=== PATIENT | female | born 1935 | race Hispanic/Latino ===

== ENCOUNTER 2018-09-24 22:00 | Inpatient (IN) | payer OTHER ==
[~2018-09-24] VITALS: Ht 152.4 cm; Wt 42.9 kg
--- OUTSIDE RECORDS SUMMARY | 2018-09-24 22:02 | XMS REPORT ---
Author Organization Unknown Address [address] [place] [address] Phone [phone] Care Team Providers Care Esthetician Name Role Phone Andrew Roque Unavailable Unavailable Allergies Code Code System Name Reaction Severity Status Onset No Known Allergies Active Medications Name Status Start Date Stop Date benazepril 20 mg-hydrochlorothiazide 25 mg tablet Take 1 tablet every day by oral route for 90 days. Active Not available benzonatate 150 mg capsule Take 1 capsule 3 times a day by oral route as needed for 5 days. Completed 07/23/2017 Cartia XT 240 mg capsule,extended release Completed 03/25/2016 clotrimazole 1 % topical cream APPLY TO THE AFFECTED AND SURROUNDING AREAS OF SKIN BY TOPICAL ROUTE 2 TIMES PER DAY IN THE MORNING AND EVENING Completed 02/10/2017 DILT-XR 240 mg capsule, extended release Take 1 capsule every day by oral route for 90 days. Active Not available glimepiride 2 mg tablet Completed 03/25/2016 glimepiride 4 mg tablet TAKE ONE TABLET BY MOUTH ONCE DAILY IN THE MORNING WITH BREAKFAST OR THE FIRST MAIN MEAL OF THE DAY Completed 07/23/2017 Levemir FlexTouch U-100 Insulin 100 unit/mL (3 mL) subcutaneous pen Inject 10 units every day by subcutaneous route for 90 days. Active Not available levothyroxine 100 mcg tablet Completed 03/25/2016 levothyroxine 125 mcg tablet Completed 03/25/2016 levothyroxine 50 mcg tablet TAKE ONE TABLET BY MOUTH ONCE DAILY Completed 07/23/2017 levothyroxine 75 mcg tablet Take 1 tablet every day by oral route for 90 days. Active Not available meloxicam 15 mg tablet Completed 02/10/2017 meloxicam 7.5 mg tablet TAKE ONE TABLET BY MOUTH ONCE DAILY Completed 06/01/2016 metformin 500 mg tablet Take 1 tablet twice a day by oral route for 90 days. Active Not available simvastatin 10 mg tablet Completed 03/25/2016 simvastatin 40 mg tablet Take 1 tablet every day by oral route for 90 days. Active Not available Tylenol Arthritis Pain 650 mg tablet,extended release Take 1 tablet every 8 hours by oral route as needed for 10 days. Completed 07/23/2017 Victoza 2-Jermaine 0.6 mg/0.1 mL (18 mg/3 mL) subcutaneous pen injector Inject 1.2 mg every day by subcutaneous route for 30 days. 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 07/23/2017 Peripheral Circulatory Disorder Associated with Type 2 Diabetes Mellitus Active 07/23/2017 Chronic Kidney Disease Stage 3 Active 07/23/2017 Procedures Date Name Performed by 02/10/2017 Bone Density, Dual Photon Absorptiometry [place] [employer] [facility] [address] [place] [address] (Work Place) 07/23/2017 US, Doppler, Arterial [facility] [address] [facility] [address] [place] [address] (Work Place) Notes: 09/20/2015: APPENDIX; Surgery Date: 2013 Lab Results Date Name Specimen Result Interpretation Description Value Range Status Address 02/10/2017 CBC W/ Auto Diff Wbc 5.89 x10*3/L 3.98-10.04 x10*3/L Final [facility] Laboratory: [address] Rbc 5.15 10*12/L 3.93-5.22 10*12/L Final [facility] Laboratory: [address] Hemoglobin 15.70 g/dL 11.20-15.70 g/dL Final [facility] Laboratory: [address] High Hematocrit 46.5 % 34.1-44.9 % Final [facility] Laboratory: [address] Mcv 90.3 fL 80.0-100.0 fL Final [facility] Laboratory: [address] Mch 30.5 pg 25.6-32.2 pg Final [facility] Laboratory: [address] Mchc 33.8 g/dL 32.2-35.5 g/dL Final [facility] Laboratory: [address] [place] RDW-SD 46.3 fL 36.4-46.3 fL Final [facility] Laboratory: [address] [place] High Platelet Count 494.0 k/uL 182.0-369.0 k/uL Final [facility] Laboratory: [address] [place] Mpv 10.2 fL 7.5-11.5 fL Final [facility] Laboratory: [address] [place] Neut% 55.5 % 34.0-71.1 % Final [facility] Laboratory: [address] [place] Lymph% 32.8 % 19.3-51.7 % Final [facility] Laboratory: [address] [place] Mon% 6.6 % 4.7-12.5 % Final [facility] Laboratory: [address] [place] Eos% 2.2 % 0.7-5.8 % Final [facility] Laboratory: [address] [place] High Baso% 2.9 % 0.1-1.2 % Final [facility] Laboratory: [address] [place] Neut# 3.3 x10*3/L 1.6-6.1 x10*3/L Final [facility] Laboratory: [address] [place] Lymph# 1.9 x10*3/L 1.2-3.7 x10*3/L Final [facility] Laboratory: [address] [place] Mon# 0.4 x10*3/L 0.2-0.9 x10*3/L Final [facility] Laboratory: [address] [place] Eos# 0.13 x10*3/L 0.04-0.36 x10*3/L Final [facility]: [address] [place] Baso# 0.17 x10*3/L 0.01-0.08 x10*3/L Final [facility]: [address] [place] 02/10/2017 CMP, Serum or Plasma Alt 16 U/L 0-55 U/L Final [facility] Laboratory: [address] [place] [address] Ast 19 U/L 5-34 U/L Final [facility] Laboratory: [address] [place], [place] Bun 13.5 mg/dL 9.8-20.1 mg/dL Final [facility] Laboratory: [address] [place], [place] Alk Phos 141 unit/L 40-150 unit/L Final [facility]: [address] [facility] Glucose 365 mg/dL 70-99 mg/dL Final [facility]: [address] [facility] Low Albumin 3.4 g/dL 3.5-5.0 g/dL Final [facility]: [address] [facility] Creatinine 0.92 mg/dL 0.57-1.11 mg/dL Final [facility] Laboratory: [address] [place] [address] Low eGFR Non- 58 mL/min/1.73m2 >60 mL/min/1.73m2 Final [facility] Laboratory: [address] [place] [address] Total Bilirubin 0.5 mg/dL 0.2-1.2 mg/dL Final [facility] Laboratory: [address] [place] [address] eGFR - >60 mL/min/1.73m2 >60 mL/min/1.73m2 Final [facility]: [address] [facility] Sodium 136 mEq/L 136-145 mEq/L Final [facility] Laboratory: [address] [place] [address] High Potassium 5.2 mEq/L 3.5-5.1 mEq/L Final [facility] Laboratory: [address] [place] [address] Chloride 100 mmol/L 98-107 mmol/L Final [facility] Laboratory: [address] Total Protein 7.7 g/dL 6.4-8.3 g/dL Final [facility]: [address] [facility] Calcium 10.1 mg/dL 8.4-10.2 mg/dL Final [facility] Laboratory: [address] Co2 26.8 mmol/L 23.0-31.0 mmol/L Final [facility] Laboratory: [address] Anion Gap 9 calc Final [facility] Laboratory: [address] 02/10/2017 Lipid Panel, Serum Hdl 47 mg/dL 40-60 mg/dL Final [facility] Laboratory: [address] High Triglyceride 242 mg/dL 0-149 mg/dL Final [facility]: [address] VLDL Calc. 48 mg/dL Final [facility] Laboratory: [address] cholesterol/HDL Ratio 5.2 mg/dL Final [facility] Laboratory: [address] High non-HDL Cholesterol Calc. 196 mg/dL 0-160 mg/dL Final [facility] Laboratory: [address] High Cholesterol 243 mg/dL 0-199 mg/dL Final [facility] Laboratory: [address] High LDL Calc. 148 mg/dL 0-130 mg/dL Final [facility] Laboratory: [address] 02/10/2017 T4, Free, Serum T4 Free 0.73 NG/dL 0.70-1.48 NG/dL Final [facility] Laboratory: [address] 02/10/2017 TSH, Serum or Plasma High Tsh 30.680 uIU/mL 0.350-4.940 uIU/mL Final [facility] Laboratory: [address] 02/10/2017 HbA1C (Hemoglobin a1C), Blood High A1C W/eag 12.8 % 1.0- 5.7 % Final [facility] Laboratory: [address] Average Blood Glucose 321 mg/dL Final [facility] Laboratory: [address] Albumin:creatinine Ratio, Urine Type Urine Microlalbumin 30 mg/L [facility]: [address] [place] [address], [place] Type Urine Creatinine 50 mg/dL [facility]: [address] [place] [address], [place] Type A:C Ratio 30-300 mg/g (Abnormal) [facility]: [address] Past Encounters 07/23/2017 Hypertensive Disorder; Hypothyroidism; Pure Hypercholesterolemia; Pneumococcal Vaccination; Renal Disorder Due to Type 2 Diabetes Mellitus; Peripheral Circulatory Disorder Associated with Type 2 Diabetes Mellitus CODEY Turner: [id number] [facility], [facility] [address] [address], Ph. 02/23/2017 Type 2 Diabetes Mellitus; Pure Hypercholesterolemia; Hypothyroidism; Hypertensive Disorder Marilyn ZabalaPARVINP: [id number] [facility], [facility] [address] [address], Ph. 02/10/2017 Adult Health Examination; Body Mass Index 20-24 - Normal; Hypertensive Disorder; Type 2 Diabetes Mellitus; Pure Hypercholesterolemia; Hypothyroidism; Pure Hyperglyceridemia; Advance Directive Discussed with Patient; Depression Screening; At Risk for Falls; Immunization; Screening for Malignant Neoplasm of Colon; Screening Mammography; Postmenopausal State; Cough; Hearing Loss; Pain of Left Shoulder Joint Marilyn FAVIAN Zabala: [id number] [facility], [address] [address], Ph. 06/01/2016 Type 2 Diabetes Mellitus; Hypertensive Disorder; Hypothyroidism; Generalized Aches and Pains; Pure Hypercholesterolemia Andrew Roque MD: [id number] [facility], [address] [address], Ph. 03/25/2016 Hypertensive Disorder; Hypothyroidism; Generalized Aches and Pains; Type 2 Diabetes Mellitus; Tinea Pedis Due to Trichophyton Rubrum; Immunization Andrew Roque MD: [id number] [facility], [address] [address], Ph. Social History Smoking Status Never Smoker Vaccine List Vaccine Type influenza, high dose seasonal 02/10/20170.5 mL influenza, injectable, quadrivalent 03/06/2015 pneumococcal polysaccharide PPV23 03/25/20160.5 mL Plan of Care Patient Instructions Discussed in detail with patient and her daughter that the patient is at high risk for complications including or disability for not following my recommendations by taking medications consistently, keeping follow up appointments or changing lifestyle. It was good to see you in the office today for your Medicare Annual Wellness Visit. You have been provided some information on healthy nutrition, including a diet rich in fruits and vegetables, minimizing simple carbohydrates, salt, and saturated fats. I want to encourage regular cardiovascular exercise such as walking at least 30 minutes daily, 5 times per week. Please remember to schedule any preventive health measures that we talked about today. You have also been provided education on fall prevention and community- based lifestyle interventions to help reduce health risks and promote healthy living in your Pledge51 folder. Screening Recommendations 1. Vaccines Pneumococcal: discussed today and information sent with patient in their [facility] health folder Influenza: discussed today and information sent with patient in their [facility] health folder Shingles: discussed today and information sent with patient in their [facility] health folder Tetanus: discussed today and information sent with patient in their [facility] health folder 2. Mammography Screening: discussed today and information sent with patient in their [facility] health folder 3. Colorectal cancer Screening Colonoscopy: discussed today and information sent with patient in their [facility] health folder Fecal Occult Blood: discussed today and information sent with patient in their [facility] health folder 4. Bone Mass Measurement: discussed today 5. Pap test / Pelvic Exam Screening: discussed today 6. Eye Exam Screening: discussed today 7. Cholesterol Screening: discussed today 8. Diabetes Screening: discussed today Reminders Provider Appointments None recorded. Lab None recorded. Referral None recorded. Procedures None recorded. Surgeries None recorded. Imaging None recorded. Vitals 07/23/2017 11:15AM Work In Same Day Height Weight BMI Blood Pressure 4 ft 10.5 in 120 lbs 24.7 kg/m2 136/76 mm[Hg] 02/23/2017 10:15AM Work In Same Day Height Weight BMI Blood Pressure 4 ft 10.5 in 117 lbs 24 kg/m2 133/77 mm[Hg] 02/10/2017 09:30AM AWV Height Weight BMI Blood Pressure 4 ft 10.5 in 118 lbs 24.2 kg/m2 (1) 163/92 mm[Hg] (2) 164/91 mm[Hg] 06/01/2016 10:45AM Est Patient Height Weight BMI Blood Pressure 4 ft 10.5 in 126.4 lbs 26 kg/m2 146/80 mm[Hg] 03/25/2016 04:30PM Est Patient Height Weight BMI Blood Pressure 4 ft 10.5 in 129.6 lbs 26.6 kg/m2 171/101 mm[Hg] 09/20/2015 Height Weight BMI Blood Pressure 4 ft 10.5 in 127 lbs 26.09 kg/m2 122/71 mm[Hg] 09/16/2015 Height Weight BMI Blood Pressure 4 ft 10.5 in 127.6 lbs 26.21 kg/m2 127/74 mm[Hg] 07/26/2015 Height Weight BMI Blood Pressure 4 ft 10.5 in 125.2 lbs 25.72 kg/m2 121/67 mm[Hg] 07/11/2015 Height Weight BMI Blood Pressure 4 ft 10.5 in 124 lbs 25.47 kg/m2 122/71 mm[Hg] 03/06/2015 Height Weight BMI Blood Pressure 4 ft 10.5 in 115.6 lbs 23.75 kg/m2 110/80 mm[Hg] 06/18/2014 Height Weight BMI Blood Pressure 4 ft 10.5 in 132 lbs 27.12 kg/m2 120/78 mm[Hg] 02/14/2014 Height Weight BMI Blood Pressure 4 ft 10.5 in 111.8 lbs 22.97 kg/m2 140/90 mm[Hg] 08/07/2013 Height Weight 4 ft 10.5 in 114.8 lbs 02/13/2013 Height Weight 4 ft 10.5 in 117 lbs 11/16/2012 Height Weight 4 ft 10.5 in 117.4 lbs 06/30/2012 Height Weight 4 ft 10.5 in 124.6 lbs 12/07/2011 Height Weight 4 ft 10.5 in 133.4 lbs 12/03/2011 Height Weight 4 ft 10.5 in 132.4 lbs 06/05/2011 Height Weight 4 ft 10.5 in 127 lbs 11/03/2010 Height Weight 4 ft 10.5 in 132.6 lbs 07/21/2010 Height Weight 4 ft 10.5 in 132 lbs 05/16/2010 Weight 136 lbs 05/02/2010 Height Weight 4 ft 10.5 in 132.8 lbs 12/25/2009 Height Weight 4 ft 10.5 in 137.8 lbs 10/01/2009 Weight 135.2 lbs 06/13/2009 Height Weight 4 ft 10.5 in 127 lbs 04/16/2009 Weight 134 lbs 02/01/2009 Weight 129 lbs 12/27/2008 Weight 126 lbs 10/31/2008 Height Weight 4 ft 10 in 131 lbs 07/31/2008 Height Weight 4 ft 9 in 136 lbs
[2018-09-24 22:26] LABS: BASOPHILS # (AUTO) 0.1 (0.0-0.1); BASOPHILS % 1.8 % (0.0-1.0); EOSINOPHILS # (AUTO) 0.1 (0.0-0.4); EOSINOPHILS % 1.1 % (0.0-6.0); HEMATOCRIT 30.1 % (34.2-44.1); HEMOGLOBIN 10.9 g/dL (12.0-16.0); LYMPHOCYTES # (AUTO) 1.2 (1.0-3.2); LYMPHOCYTES % 19.1 % (18.0-39.1); MEAN CORPUSCULAR HEMOGLOBIN 31.2 pg (28-32); MEAN CORPUSCULAR HGB CONC 36.2 g/dL (31-35); MEAN CORPUSCULAR VOLUME 86.2 fL (81-99); MONOCYTES # (AUTO) 0.7 (0.2-0.8); MONOCYTES % 10.5 % (4.4-11.3); NEUTROPHILS # (AUTO) 4.1 (2.1-6.9); NEUTROPHILS % 66.5 % (38.7-80.0); PLATELET COUNT 621 x10e3/uL (140-360); RED BLOOD COUNT 3.49 x10e6/uL (3.6-5.1); RED CELL DISTRIBUTION WIDTH 13.5 % (11.7-14.4)
[2018-09-24 22:27] LABS: BILIRUBIN,URINE NEGATIVE (NEGATIVE); CLARITY,URINE CLEAR (CLEAR); COLOR,URINE YELLOW (YELLOW); KETONES,URINE NEGATIVE (NEGATIVE); LEUKOCYTE ESTERASE ,URINE MODERATE (NEGATIVE); NITRITE,URINE NEGATIVE (NEGATIVE); PROTEIN,URINE DIPSTICK NEGATIVE (NEGATIVE); URINE UROBILINOGEN 0.2 mg/dL (0.2 - 1)
[2018-09-24] MEDS ORDERED: SIMVASTATIN40 MG PO (22:38)
[2018-09-24] MEDS ORDERED: LEVOTHYROXINE100 MCG PO (22:38)
[2018-09-24] MEDS ORDERED: METFORMIN HCL500 MG PO (22:38)
[2018-09-24] MEDS ORDERED: DILT-XR240 MG PO (22:38)
[2018-09-24] MEDS ORDERED: FENOFIBRATE54 MG PO (22:38)
[2018-09-24] MEDS ORDERED: ASPIRIN EC81 MG PO (22:38)
[2018-09-24] MEDS ORDERED: BENAZEPRIL-HCT1 EAC3 PO (22:38)
[2018-09-24 22:40] LABS: INR 1.02; PROTHROMBIN TIME 13.9 seconds (11.9-14.5)
[2018-09-24 22:41] LABS: PARTIAL THROMBOPLASTIN TIME 27.9 seconds (23.8-35.5)
[2018-09-24 22:50] LABS: ALBUMIN 3.6 g/dL (3.5-5.0); ALBUMIN/GLOBULIN RATIO 0.9 (0.8-2.0); BACTERIA,URINE MANY /HPF; CALCIUM 10.5 mg/dL (8.4-10.2); CREATININE, SERUM 2.31 mg/dL (0.57-1.11); EPITHELIAL CELLS,URINE FEW /LPF; WBC,URINE (MAN) >50 /HPF (0-5)
[2018-09-24 22:57] LABS: CREATINE KINASE MB 0.5 ng/mL (0-5.0)
--- NOTE | 2018-09-24 23:04 | Diagnostic Imaging Report ---
EXAMINATION: CHEST 2 VIEWS INDICATION: ^CHEST PAIN COMPARISON: None FINDINGS: PA and lateral views TUBES and LINES: None. LUNGS: Diffuse hyperinflation. There is no evidence of pneumonia or pulmonary edema. Round calcification superimposed over the mediastinum on the lateral image may represent a calcified granuloma. This measures 8 mm. PLEURA: No pleural effusion or pneumothorax. HEART AND MEDIASTINUM: The heart is normal in size. The aorta is tortuous with calcifications in the arch. BONES AND SOFT TISSUES: The bones are diffusely demineralized. Healed left upper rib fractures. No acute fractures. Soft tissues are unremarkable. UPPER ABDOMEN: No free air under the diaphragm. IMPRESSION: No acute thoracic abnormality. Mild hyperinflation suggestive of COPD. Potential calcified granuloma. Signed by: Dr. Daniel Cohen MD on 09/24/2018 11:01 PM
[2018-09-24] MEDS: SODIUM CHLORIDE 0.9% 1000ML 1,000 ML IV SCH (23:24)
[2018-09-24] MEDS ORDERED: CEFTRIAXONE SOD 1 GM/NS 50 ML 50 ML IV SCH (23:30)
[2018-09-24] MEDS ORDERED: SODIUM CHLORIDE 0.9% 1000ML 1,000 ML IV SCH (23:43)
[2018-09-24] MEDS ORDERED: DEXTROSE 50% SYRINGE 50 ML IV PRN (23:45)
[2018-09-24] MEDS ORDERED: ONDANSETRON HCL INJ 2MG/ML 2ML 2 MG/ML VIAL IV PRN (23:45)
[2018-09-25] VITALS (10 sets, daily range): BP systolic 116–156; BP diastolic 56–69
--- OUTSIDE RECORDS SUMMARY | 2018-09-25 00:27 | XMS REPORT ---
Author [facility] Address Unknown Phone Unavailable Care Team Providers Care Installation And Repair Technician Name Role Phone Caroline LUX Unavailable Unavailable Problems This patient has no known problems. Allergies, Adverse Reactions, Alerts This patient has no known allergies or adverse reactions. Medications This patient has no known medications. Results Test Description Test Time Test Comments Text Results Atomic Results Result Comments CHEST 2 VIEWS 2018 22:59:00 [place] [address] Patient Name: VIVIANA MALIK MR #: [id number] : 1935 Age/Sex: 83/F Req #: [id number] Adm Physician: Ordered by: ROSA LUX MD Report #: [id number] Location: ER Room/Bed: Procedure: [id number] DX/CHEST 2 VIEWS Exam Date: Exam Time: REPORT STATUS: Signed EXAMINATION: CHEST 2 VIEWS INDICATION: CHEST PAIN COM PARISON: None FINDINGS: PA and lateral views TUBES and LINES: None. LUNGS: Diffuse hyperinflation. There is no evidence of pneumonia or pulmonary edema. Round calcification superimposed over the mediastinum on the lateral image may represent a calcified granuloma. This measures 8 mm. PLEURA: No pleural effusion or pneumothorax. HEART AND MEDIASTINUM: The heart is normal in size. The aorta is tortuous with calcifications in the arch. BONES AND SOFT TISSUES: The bones are diffusely demineralized. Healed left upper rib fractures. No acute fractures. Soft tissues are unremarkable. UPPER ABDOMEN: No free air under the diaphragm. IMPRESSION: No acute thoracic abnormality. Mild hyperinflation suggestive of COPD. Potential calcified granuloma. Signed by: Dr. Lola Cohen MD on 2018 11:01 PM Dictated By: LOLA COHEN MD 00 Transcribed By: NABIL on 09/24/182300 COPY TO: ROSA LUX MD
--- NOTE | 2018-09-25 07:10 | NUR ---
PATIENT IS RESTING IN BED- ALERT TO SELF AND CONFUSED BUT REMAINS IN STABLE CONDITION WITH NO S/S OF RESPIRATORY DISTRESS. NO PAIN INDICATED- FLACC SCREEN. IV FLUIDS INFUSING. MIJARES IS INTACT- MIJARES REMAINS BELOW BLADDER AND IS NOT TOUCHING THE FLOOR. FAMILY MEMBERS PRESENT IN THE ROOM. AIR PUMP AND BED ALARM APPLIED. CALL LIGHT IS WITHIN REACH OF PATIENT- PATIENT AND FAMILY MEMBERS INFORMED TO CALL FOR ASSISTANCE NEEDED.
[2018-09-25 07:30] LABS: BASOPHILS # (AUTO) 0.1 (0.0-0.1); BASOPHILS % 1.6 % (0.0-1.0); EOSINOPHILS # (AUTO) 0.1 (0.0-0.4); EOSINOPHILS % 2.7 % (0.0-6.0); HEMATOCRIT 28.3 % (34.2-44.1); HEMOGLOBIN 10.2 g/dL (12.0-16.0); LYMPHOCYTES # (AUTO) 1.2 (1.0-3.2); LYMPHOCYTES % 27.9 % (18.0-39.1); MEAN CORPUSCULAR HEMOGLOBIN 31.3 pg (28-32); MEAN CORPUSCULAR VOLUME 86.8 fL (81-99); MONOCYTES # (AUTO) 0.6 (0.2-0.8); MONOCYTES % 12.6 % (4.4-11.3); NEUTROPHILS # (AUTO) 2.4 (2.1-6.9); PLATELET COUNT 517 x10e3/uL (140-360); RED BLOOD COUNT 3.26 x10e6/uL (3.6-5.1); RED CELL DISTRIBUTION WIDTH 13.4 % (11.7-14.4)
[2018-09-25] MEDS: INSULIN LISPRO 100 UNIT/1 ML 3ML VIAL SQ SCH ×4 (07:30→21:05)
[2018-09-25 07:44] LABS: ANION GAP 12.3 mmol/L (8-16); CALCIUM 9.6 mg/dL (8.4-10.2); CREATININE, SERUM 1.45 mg/dL (0.57-1.11); POTASSIUM 3.3 mmol/L (3.5-5.1)
[2018-09-25] MEDS: SODIUM CHLORIDE 0.9% 1000ML 1,000 ML IV SCH ×2 (08:05→19:47)
--- NOTE | 2018-09-25 10:07 | NUR ---
SPOKE TO DR. RUSSO REGARDING PATIENT'S POTASSIUM OF 3.3- NO ORDER RECEIVED.
[2018-09-25] MEDS: DILTIAZEM HCL ER 120 MG CAP PO SCH (10:20)
[2018-09-25] MEDS: ASPIRIN 81 MG ENTERIC COATED PO SCH (10:20)
[2018-09-25] MEDS: LEVOTHYROXINE SODIUM 100 MCG TAB PO SCH (10:20)
[2018-09-25] MEDS: FENOFIBRATE 48 MG TAB PO SCH (10:20)
--- NOTE | 2018-09-25 16:04 | History and Physical ---
The patient on observation. PRIMARY CARE PHYSICIAN: Dr. Carson Roque. CHIEF COMPLAINT: Generalized weakness. HISTORY OF PRESENT ILLNESS: This is an 83-year-old female on baseline hypertension, diabetes type 2 on metformin, hypothyroidism, and mild functional dementia. The patient came in with generalized weakness. Apparently, her sodium level was 122. The patient is having urinary bladder infection for the past week or so. The patient is otherwise stable. At baseline, the patient is able to care for herself at home. Per son, the patient is independent, although she has some memory loss at times, but not significant to require assistance. The patient is otherwise stable. PAST MEDICAL HISTORY: Hypertension, hypothyroidism, diabetes type 2, and dyslipidemia. PAST SURGICAL HISTORY: Noncontributory. SOCIAL HISTORY: The patient lives with her family. She does not smoke or use alcohol. No recreational drugs. ALLERGIES: NO KNOWN ALLERGIES. HOME MEDICATIONS: 1. Aspirin. 2. Benazepril. 3. HCTZ. 4. Diltiazem CD. 5. Fenofibrate. 6. Levothyroxine. 7. Metformin. 8. Simvastatin. PHYSICAL EXAMINATION: VITAL SIGNS: Temperature is 97, blood pressure 149/69, pulse rate is 82, and respirations 20. GENERAL: The patient is awake. She is alert, answering appropriate questions. She is not confused at this time. HEENT: Normocephalic, atraumatic. Anicteric. NECK: Supple grossly. PULMONARY: Clear. CARDIOVASCULAR: Regular rate and rhythm. ABDOMEN: Soft and nondistended. EXTREMITIES: No gross cyanosis or edema. NEUROLOGIC: Awake and alert x3. LABORATORY DATA: WBC 6.1, hemoglobin 10.9, hematocrit 30.1, and platelets 621. Chemistry; sodium is 122, potassium 4, chloride 85, bicarb 25, BUN is 59, creatinine 2.3, glucose 132, calcium is 9.6, and albumin 3.6. Liver enzymes normal. Chest x-ray, no acute finding. Urinalysis shown wbc greater than 50, rbc 20, many bacteria. Cultures due pending. IMPRESSION: 1. Urinary tract infection. 2. Hyponatremia. Sodium 122, most likely from combination of dehydration and HCTZ home medication. 3. Hypertension. 4. Dyslipidemia. 5. Hypothyroidism. PLAN: 1. Rocephin IV q.12. 2. Normal saline 100 mL an hour. 3. Hold off on benazepril and HCTZ for now. 4. Resume other home medications. 5. Check thyroid function test, B12, folic acid, repeated chemistry panel. 6. We will resume the patient's other home medication. MD JAKE Ford/EMEKA /[id number] cc: Anton Roque MD
--- NOTE | 2018-09-25 19:03 | NUR ---
PATIENT IS RESTING IN BED- IN STABLE CONDITION WITH NO S/S OF RESPIRATORY DISTRESS. NO PAIN VOICED. IV FLUIDS INFUSING. MIJARES INTACT AND DRAINING. SON PRESENT IN ROOM. BED ALARM ON. CALL LIGHT IS WITHIN REACH, PATIENT INSTRUCTED TO CALL FOR ASSISTANCE NEEDED. BEDSIDE REPORT GIVEN TO ONCOMING NURSE.
[2018-09-25] MEDS: SIMVASTATIN 40 MG TAB PO SCH (21:05)
[2018-09-25] MEDS: CEFTRIAXONE SOD 1 GM/NS 50 ML 50 ML IV SCH (21:05)
[2018-09-26] VITALS (7 sets, daily range): BP systolic 114–151; BP diastolic 55–66
--- NOTE | 2018-09-26 01:47 | NUR ---
PATIENT IS RESTING COMFORTABLY IN STABLE CONDITION UPON MAKING ROUNDS. NO SIGNS OF DISTRESS NOTED, FAMILY MEMBER PRESENT, BED LOCKED AND LOW, CALL LIGHT WITHIN REACH, WILL CONTINUE TO MONITOR.
[2018-09-26] MEDS: LEVOTHYROXINE SODIUM 100 MCG TAB PO SCH (06:20)
[2018-09-26 06:21] LABS: ANION GAP 8.7 mmol/L (8-16); BLOOD UREA NITROGEN 8 mg/dL (7-26); BUN/CREATININE RATIO 11 (6-25); CALCIUM 8.3 mg/dL (8.4-10.2); CARBON DIOXIDE 27 mmol/L (22-29); CHLORIDE 110 mmol/L (98-107); CREATININE, SERUM 0.73 mg/dL (0.57-1.11); EST GLOMERULAR FILTRATION RATE > 60 ML/MIN (60-); GLUCOSE 97 mg/dL (74-118); POTASSIUM 3.7 mmol/L (3.5-5.1); SODIUM 142 mmol/L (136-145)
[2018-09-26 06:47] LABS: MAGNESIUM 1.8 MG/DL (1.3-2.1); PHOSPHORUS 2.7 MG/DL (2.3-4.7)
[2018-09-26 07:12] LABS: THYROID STIMULATING HORMONE 1.972 uIU/mL (0.350-4.940)
[2018-09-26] MEDS: SODIUM CHLORIDE 0.9% 1000ML 1,000 ML IV SCH ×2 (07:15→17:20)
[2018-09-26 07:18] LABS: FOLATE 10.9 ng/mL (7.0-15.4)
[2018-09-26] MEDS: INSULIN LISPRO 100 UNIT/1 ML 3ML VIAL SQ SCH ×4 (07:30→21:00)
[2018-09-26] MEDS: ASPIRIN 81 MG ENTERIC COATED PO SCH (09:46)
[2018-09-26] MEDS: DILTIAZEM HCL ER 120 MG CAP PO SCH (09:46)
[2018-09-26] MEDS: FENOFIBRATE 48 MG TAB PO SCH (09:47)
[2018-09-26] MEDS: CEFTRIAXONE SOD 1 GM/NS 50 ML 50 ML IV SCH ×2 (09:47→21:25)
--- NOTE | 2018-09-26 20:20 | NUR ---
RADIOLOGY HAS COME TO PICKUP PATIENT.
--- NOTE | 2018-09-26 20:43 | NUR ---
PATIENT BACK FROM RADIOLOGY NO DISTRESS NOTED.
--- NOTE | 2018-09-26 21:24 | Diagnostic Imaging Report ---
EXAM: CT ABDOMEN/PELVIS WO, CT CHEST WO DATE: 09/26/2018 7:04 PM INDICATION: 83-year-old female, history per family cannot eat, weight loss, weeks COMPARISON: None TECHNIQUE: The chest, abdomen and pelvis were scanned using a multidetector helical scanner. Coronal and sagittal reformations were obtained. CT low dose techniques were utilized, as applicable. IV Contrast: 0 ml Isovue 300/370 FINDINGS: Lack of IV contrast decreases sensitivity. Lungs and Airways: The lungs and airways are normal with no focal abnormality demonstrated. Tiny 6 mm pulmonary micronodule in the superior left lower lobe. Other scattered micronodules measuring less than 4 mm are present. Pleura: The pleural spaces are clear. Heart and mediastinum: The thyroid gland is normal. No significant mediastinal, hilar or axillary lymphadenopathy is seen. The heart and pericardium are within normal limits. LIVER/BILIARY: No masses. No ductal dilatation. GALLBLADDER: Cholecystectomy. SPLEEN: Unremarkable PANCREAS: Unremarkable ADRENALS: No nodules KIDNEYS: Mild left-sided hydronephrosis. GI TRACT: No wall thickening or evidence of obstruction. VESSELS: Atherosclerotic vascular calcifications. PERITONEUM/RETROPERITONEUM: No free air or fluid LYMPH NODES: No lymphadenopathy REPRODUCTIVE ORGANS/BLADDER: Unremarkable SOFT TISSUES: Unremarkable BONES: No suspicious bone lesions. IMPRESSION: Mild left hydronephrosis may be related to incomplete bladder evacuation. 6 mm superior left lower lobe pulmonary micronodule, consider follow-up in 6-12 months. Signed by: Jermaine Barbour MD on 09/26/2018 9:20 PM
[2018-09-26] MEDS: SIMVASTATIN 40 MG TAB PO SCH (21:25)
[2018-09-27] VITALS (7 sets, daily range): BP systolic 113–149; BP diastolic 57–73
[2018-09-27] MEDS: LEVOTHYROXINE SODIUM 100 MCG TAB PO SCH (07:05)
[2018-09-27] MEDS: INSULIN LISPRO 100 UNIT/1 ML 3ML VIAL SQ SCH ×4 (07:30→21:35)
[2018-09-27] MEDS: CEFTRIAXONE SOD 1 GM/NS 50 ML 50 ML IV SCH ×2 (09:32→21:35)
[2018-09-27] MEDS: ASPIRIN 81 MG ENTERIC COATED PO SCH (09:32)
[2018-09-27] MEDS: DILTIAZEM HCL ER 120 MG CAP PO SCH (09:33)
--- NOTE | 2018-09-27 11:00 | NUR ---
Pt came back to the floor s/p brochcosopy with wash with Dr. Moyer. pt is aox4 and able to verbalize needs. Continues on O2 and well tolerated. Pt denies any pain at this time. Denies SOB.
--- NOTE | 2018-09-27 13:30 | NUR ---
Pt yoon discontinued at this time. per physician orders.
--- NOTE | 2018-09-27 17:17 | NUR ---
Nutrition Intervention Note RD Recommendation(s) for Physician: -Rec ADA 1600 diet as medically appropriate -Rec Glucerna BID to increase protein-calorie intake -The patient meets criteria for MODERATE protein-calorie malnutrition. Plan of Care: RD following, monitoring for tolerance and adequacy, ONS rec Nutrition reason for involvement: Nutrition Risk Trigger MST RD Assessment 09/27: 83yo F, who was admitted for generalized weakness. Pt was discussed during AM rounds. CT abd/pel showed mild hydronephrosis. GI following for swallowing difficulty. Visited pt in the room. Citizen Of [place] speaking only. Per daughter, pt doesnt have hx of dementia; however, pt is deaf. 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 Regular diet texture was well tolerated. Daughter thinks pt has lost some weight but doesnt know what her UBW is. Pt has some moderate fat/muscle loss upon NFPA (see below). RD rec Glucerna BID; family was agreeable with plan. Will continue to monitor and follow. Principal Problems/Diagnoses: UTI, hyponatremia PMH: Hypertension, hypothyroidism, diabetes type 2, and dyslipidemia. GI: abdomen soft, non-tender, flatus present Skin: intact Labs: (09/27) no chemistry drawn Meds: synthroid Ht: 60in Wt: 95lbs BMI: 18.5kg/m2 IBW: 100lbs Malnutrition Evaluation (09/27/2018) The patient meets criteria for MODERATE protein-calorie malnutrition. Energy intake: <75% of estimated energy requirements for >7 days Weight loss: Unknown Fat loss: Moderate clavicle protrusion Muscle loss: Moderate slight temporal depression Supporting Evidence: Fluid accumulation: unable to evaluate Functional Status: reduced Nutrition Prescription (Diet Order): GI soft Estimated Nutritional Needs: Calories: 1290 1505kcal(30-35kcal/kg/d) Weight used: CBW Protein: 65 85g (1.5-2g/kg/d) Weight used: CBW Diet Adequacy: Meeting calorie needs, Not meeting protein needs Diet Education Needs Assessment: Diet education indicated, but patient not appropriate for education at this time. Nutrition Care Level: mod Nutrition Diagnosis: Moderate malnutrition related to inadequate energy intake as evidenced by decreased PO intake and moderate muscle/ fat loss. Goal: Patient will meet 75-100% of estimated needs by follow up Progress: N/A Interventions: Modified diet, Commercial beverage Monitoring/Evaluation: Total energy intake, Total protein intake, Modified diet, Liquid supplement, and Weight change Signed: Jennifer Ford, MS, RD, LD
--- NOTE | 2018-09-27 19:00 | NUR ---
Boo catheter was discontinued at 1330 and pt has voided without difficulties.
[2018-09-27] MEDS: SIMVASTATIN 40 MG TAB PO SCH (21:35)
--- NOTE | 2018-09-27 23:00 | Consultation ---
DATE OF CONSULTATION: 09/27/2018 HISTORY OF PRESENT ILLNESS: This is an 83-year-old, who presented to the hospital because of generalized weakness, apparently has a history of diabetes and dementia. The patient apparently has been having some problems, swallowing to solids. Her workup revealed that she is anemic with hemoglobin around 10.9 on admission. She also had a CT scan of the abdomen and pelvis as well as the chest, which shows mild left hydronephrosis. There is lung nodules, otherwise is unremarkable. She also had a CT of the chest, which showed the same thing. PAST MEDICAL PROBLEM: Significant for history of hypertension, hypothyroidism, diabetes, dyslipidemia. MEDICATIONS: On admission including aspirin, benazepril, hydrochlorothiazide, diltiazem, fenofibrate, levothyroxine, metformin, and simvastatin. ALLERGIES: NONE. SOCIAL HISTORY: No alcohol abuse. FAMILY HISTORY: Noncontributory. REVIEW OF SYSTEMS: Denies any chest pain or shortness of breath. Does have some dysphagia. Denies any odynophagia. Denies any dysuria, hematuria, or any kind of syncopal episode. PHYSICAL EXAMINATION: GENERAL: The patient is awake, lying in bed, appears to be stable, not in acute distress. VITAL SIGNS: Afebrile currently with stable vital signs. HEAD, EYES, EARS, NOSE, AND THROAT: Normocephalic. Sclerae are anicteric. NECK: Supple. HEART: Regular. LUNGS: Clear. ABDOMEN: Soft. No distention at this point. Nontender. EXTREMITIES: No cyanosis. No clubbing. LAB VALUES: Significant for WBC of 4.7, hemoglobin 10.2, hematocrit 33.8. The chemistry was okay. BMP was okay yesterday. PT/INR is normal. IMPRESSION: 1. Dysphagia to solid. 2. Hypertension. 3. Dyslipidemia. RECOMMENDATION: Continue current care at this point. I will obtain an upper GI since the family refused endoscopy. Follow clinically. Josué Burt MD DHD/MODL /[id number] cc: MD Rik Harris MD
[2018-09-28] VITALS: BP_SYST 123; BP_SYST 91; BP_DIAS 55; BP_DIAS 70
[2018-09-28 04:00] VITALS: BP 98/65
[2018-09-28] MEDS: LEVOTHYROXINE SODIUM 100 MCG TAB PO SCH (06:16)
--- NOTE | 2018-09-28 06:39 | NUR ---
Patient is laying on the right side, respirations are even and unlabored. Patient appears to be comfortable, no SOB. Son at bedside. HOB slightly elevated, bed is low, wheels are locked and call light within reach.
[2018-09-28] MEDS: INSULIN LISPRO 100 UNIT/1 ML 3ML VIAL SQ SCH (07:30)
--- NOTE | 2018-09-28 07:40 | NUR ---
PATIENT IS IN STABLE CONDITION WITH NO S/S OF RESPIRATORY DISTRESS. NO PAIN VOICED. IV FLUIDS INFUSING. DIAPER APPLIED. SON PRESENT IN ROOM. BED ALARM ON. CALL LIGHT IS WITHIN REACH, PATIENT INSTRUCTED TO CALL FOR ASSISTANCE NEEDED.
[2018-09-28 08:08] VITALS: BP 97/52
[2018-09-28] MEDS: CEFTRIAXONE SOD 1 GM/NS 50 ML 50 ML IV SCH (08:18)
[2018-09-28] MEDS: DILTIAZEM HCL ER 120 MG CAP PO SCH (08:18)
[2018-09-28] MEDS: ASPIRIN 81 MG ENTERIC COATED PO SCH (08:21)
[2018-09-28 09:31] VITALS: BP 97/52
--- NOTE | 2018-09-28 11:03 | NUR ---
RECEIVED DC ORDER FROM MD. PATIENT IS IN STABLE CONDITION. DENIES PAIN OR DISCOMFORT. SON AT BEDSIDE. DISCHARGE TEACHING PROVIDED TO SON AND PATIENT, THEY BOTH VERBALIZED UNDERSTANDING. IV LINE TO LEFT AC DC'D WITH TIP INTACT, PRESSURE APPLIED TO SITE, NO BLEEDING NOTED. DISCHARGE FOLDER AND PERSONAL ITEMS ON HAND. PATIENT ACCOMPANIED TO PRIVATE AUTO VIA WHEELCHAIR BY STAFF.
--- NOTE | 2018-10-25 21:20 | Discharge Summary ---
PRIMARY CARE PHYSICIAN: Dr. Carson Roque. FAST FOOD ASSISTANT RESTAURANT MANAGER: Dr. Susie Belle. FINAL DIAGNOSES: 1. Dysphagia to solid food, status post Gastroenterology consultation. 2. Chronic anemia. SUMMARY: The patient is an 83-year-old female, came in with dysphagia. The patient is otherwise stable. ADA diet was given. The patient was having some low sodium level secondary to taking HCTZ. She has also had urinary tract infection. The patient is otherwise stable. She does have some dysphagia, but refused EGD. Recommended outpatient followup with EGD in the future. Otherwise, the patient is stable. On discharge planning, stop the benazepril/HCTZ. Give the patient Keflex 500 mg three times a day for 5 days. The patient to follow up closely with her family doctor and for referral for an EGD as an outpatient. The patient is otherwise stable. MD JAKE Ford/EMEKA /[id number]
== END 2018-09-28 11:03 | disposition home or self-care (01) | DRG 690 ==
LOC: ER 22:00 → ERHOLD 09-25 00:24 → INTOOBSV 09-25 00:24 → MED/SURG3 09-25 01:31 → OBSVTOIN 09-26 19:06
PROVIDERS: ADMIT Internal Medicine; ATTEND Internal Medicine
DX: N10 Acute pyelonephritis (principal); E87.1 Hypo-osmolality and hyponatremia; R53.1 Weakness; E11.9 Type 2 diabetes mellitus without complications; I10 Essential (primary) hypertension; E78.00 Pure hypercholesterolemia, unspecified; N17.9 Acute kidney failure, unspecified; Z79.84 Long term (current) use of oral hypoglycemic drugs; E03.9 Hypothyroidism, unspecified; F03.90 Unspecified dementia, unspecified severity, without behavioral disturbance, psychotic disturbance, mood disturbance, and anxiety; E86.0 Dehydration; T50.2X5A Adverse effect of carbonic-anhydrase inhibitors, benzothiadiazides and other diuretics, initial encounter; Z79.82 Long term (current) use of aspirin; R13.10 Dysphagia, unspecified; D64.9 Anemia, unspecified; N13.30 Unspecified hydronephrosis; R63.4 Abnormal weight loss
CPT/HCPCS: 36415; 51700; 71046; 71250; 74176; 80048; 80053; 81001; 82550; 82553; 82607; 82746; 82948; 83735; 84100; 84443; 84484; 85025; 85610; 85730; 87086; 87186; 93005; 99284; G0378; J0696; J7030

== ENCOUNTER 2020-01-22 18:07 | Emergency (ER) | payer OTHER ==
[~2020-01-22] VITALS: Ht 152.4 cm; Wt 42.6 kg
[~2020-01-22 18:07] MED LIST: ASPIRIN EC81 MG PO; BENAZEPRIL-HCT1 EAC3 PO; DILT-XR240 MG PO; FENOFIBRATE54 MG PO; LEVOTHYROXINE100 MCG PO; METFORMIN HCL500 MG PO; SIMVASTATIN40 MG PO
--- NOTE | 2020-01-22 19:29 | Emergency Department Note ---
History of Present Illnes History of Present Illness Chief Complaint: Abdominal Complaints History of Present Illness This is a 84 year old female PRESENTS TO ED WITH PAIN TO RLQ, RIGHT SUPRAPUBIC PAIN X1 DAY; 20 GAUGE IV CATH PLACED TO PTS LEFT AC, BLOOD OBTAINED FOR LAB ANALYSIS, CULTURES, LACTIC; RESP RATE AND EFFORT ARE WNL, O2 SAT RA 96%; MARCELLE NAUSEA/VOMITING/DIARRHEA . Historian: Patient, Family Member Arrival Mode: Car Certified Lactation Educator Required: No Onset (how long ago): day(s) (1) Location: RIGHT ABD Quality: PAIN Radiation: Reports non-radiation Severity: moderate Onset quality: gradual Duration (how long): day(s) (1) Timing of current episode: constant Progression: waxing and waning Chronicity: new Context: Denies recent illness, Denies recent surgery, Denies trauma/injury Relieving factors: none Exacerbating factors: none Associated symptoms: Reports denies other symptoms Treatments prior to arrival: none Past Medical/Family History Physician Review I have reviewed the patient's past medical and family history. Any updates have been documented here. Past Medical History Recent Fever: No Clinical Suspicion of Infectio: No New/Unexplained Change in Ment: No Past Medical History: Hypertension, Diabetes, Hypothyroidism, Hyperlipedemia Past Surgical History: None Social History Smoking Cessation: Never Smoker Alcohol Use: None Any Illegal Drug Use: No Family History Family history of heart diseas: Yes Other Last Tetanus: UNKNOWN Review of Systems Review of Systems Constitutional: Reports no symptoms EENTM: Reports no symptoms Cardiovascular: Reports no symptoms Respiratory: Reports no symptoms Gastrointestinal: Reports as per HPI Genitourinary: Reports no symptoms Musculoskeletal: Reports no symptoms Integumentary: Reports no symptoms Neurological: Reports no symptoms Psychological: Reports no symptoms Endocrine: Reports no symptoms Hematological/Lymphatic: Reports no symptoms Physical Exam Related Data Allergies: Coded Allergies: No Known Allergies (Unverified , 09/24/18) Triage Vital Signs Vital Signs Date Time Temp Pulse Resp B/P (MAP) Pulse Ox O2 Delivery O2 Flow Rate FiO2 01/22/20 19:08 98.2 105 17 149/92 96 Room Air Vital signs reviewed: Yes Physical Exam CONSTITUTIONAL Constitutional: Present well-developed, Present well-nourished; Absent distressed HENT HENT: Present normocephalic, Present atraumatic, Present oropharynx clear/moist, Present nose normal HENT L/R: Present left ext ear normal, Present right ext ear normal EYES Eyes: Reports PERRL, Reports conjunctivae normal NECK Neck: Present ROM normal PULMONARY Pulmonary: Present effort normal, Present breath sounds normal CARDIOVASCULAR Cardiovascular: Present regular rhythm, Present heart sounds normal, Present capillary refill normal, Present tachycardia (108) GASTROINTESTINAL Abdominal: Present soft, Present bowel sounds normal, Present tender (MILD TENDERNESS TO ENTIRE RIGHT ABDOMEN); Absent distension, Absent guarding, Absent mass, Absent rebound GENITOURINARY Genitourinary: Present exam deferred SKIN Skin: Present warm, Present dry MUSCULOSKELETAL Musculoskeletal: Present ROM normal NEUROLOGICAL Neurological: Present alert, Present oriented x 3, Present no gross motor or sensory deficits PSYCHOLOGICAL Psychological: Present mood/affect normal, Present judgement normal Results Laboratory Laboratory Laboratory Tests Test 01/22/20 22:22 01/22/20 19:15 Urine Color Yellow (YELLOW) Urine Clarity Turbid (CLEAR) Urine pH 5.5 (5 - 7) Urine Specific [place] 1.010 (1.010-1.025) Urine Protein Negative (NEGATIVE) Urine Glucose (UA) 1+ (NEGATIVE) Urine Ketones Negative (NEGATIVE) Urine Blood Trace (NEGATIVE) Urine Nitrite Positive (NEGATIVE) Urine Bilirubin Negative (NEGATIVE) Urine Urobilinogen 1 mg/dL (0.2 - 1) Urine Leukocyte Esterase Moderate (NEGATIVE) Urine RBC 6-10 /HPF (0-5) Urine WBC 21-50 /HPF (0-5) Urine Epithelial Cells Few /LPF (NONE) Urine Bacteria Many /HPF (NONE) White Blood Count 9.68 x10e3/uL (4.8-10.8) Red Blood Count 3.92 x10e6/uL (3.6-5.1) Hemoglobin 12.1 g/dL (12.0-16.0) Hematocrit 37.7 % (34.2-44.1) Mean Corpuscular Volume 96.2 fL (81-99) Mean Corpuscular Hemoglobin 30.9 pg (28-32) Mean Corpuscular Hemoglobin Concent 32.1 g/dL (31-35) Red Cell Distribution Width 14.2 % (11.7-14.4) Platelet Count 623 x10e3/uL (140-360) Neutrophils (%) (Auto) 77.7 % (38.7-80.0) Lymphocytes (%) (Auto) 13.2 % (18.0-39.1) Monocytes (%) (Auto) 5.9 % (4.4-11.3) Eosinophils (%) (Auto) 1.0 % (0.0-6.0) Basophils (%) (Auto) 1.3 % (0.0-1.0) Neutrophils # (Auto) 7.5 (2.1-6.9) Lymphocytes # (Auto) 1.3 (1.0-3.2) Monocytes # (Auto) 0.6 (0.2-0.8) Eosinophils # (Auto) 0.1 (0.0-0.4) Basophils # (Auto) 0.1 (0.0-0.1) Absolute Immature Granulocyte (auto 0.09 x10e3/uL (0-0.1) Sodium Level 132 mmol/L (136-145) Potassium Level 3.7 mmol/L (3.5-5.1) Chloride Level 99 mmol/L (98-107) Carbon Dioxide Level 25 mmol/L (22-29) Anion Gap 11.7 mmol/L (8-16) Blood Urea Nitrogen 19 mg/dL (7-26) Creatinine 0.93 mg/dL (0.57-1.11) Estimat Glomerular Filtration Rate 57 ML/MIN (60-) BUN/Creatinine Ratio 20 (6-25) Glucose Level 256 mg/dL (74-118) Calcium Level 8.7 mg/dL (8.4-10.2) Total Bilirubin 0.6 mg/dL (0.2-1.2) Aspartate Amino Transf (AST/SGOT) 50 IU/L (5-34) Alanine Aminotransferase (ALT/SGPT) 33 IU/L (0-55) Alkaline Phosphatase 242 IU/L (40-150) Creatine Kinase 25 IU/L (29-168) Creatine Kinase MB 0.90 ng/mL (0-5.0) Troponin I 0.025 ng/mL (0-0.300) Total Protein 7.8 g/dL (6.5-8.1) Albumin 3.2 g/dL (3.5-5.0) Globulin 4.6 g/dL (2.3-3.5) Albumin/Globulin Ratio 0.7 (0.8-2.0) Amylase Level 29 U/L (25-125) Lipase 14 U/L (8-78) Lab results reviewed: Yes Imaging Imaging results reviewed: Yes Impressions Procedure: [id number] CT/CT ABDOMEN/PELVIS W Exam Date: 01/22/20 Exam Time: 2129 REPORT STATUS: Signed EXAM: CT Abdomen and Pelvis WITH contrast INDICATION: Right abdominal pain COMPARISON: Chest and abdominal CT. TECHNIQUE: Abdomen and pelvis were scanned utilizing a multidetector helical scanner from the lung base to the pubic symphysis after administration of IV contrast. Coronal and sagittal reformations were obtained. Routine protocol was performed. Scan was performed when during portal venous phase. IV CONTRAST: 100 mL of Isovue 370 ORAL CONTRAST: None COMPLICATIONS: None RADIATION DOSE: Total DLP: 389 mGy*cm Estimated effective dose: (DLP x 0.015 x size factor) mSv CTDIvol has been reviewed. It is below the limits set by the Radiation Protocol Committee (RPC). Dose modulation, iterative reconstruction, and/or weight based adjustment of the mA/kV was utilized to reduce the radiation dose to as low as reasonably achievable. FINDINGS: LINES and TUBES: None. LOWER THORAX: Bibasilar reticular and tree-in-bud nodular groundglass opacities. Moderate sliding gastric hiatal hernia. Small volume pericardial fluid. HEPATOBILIARY: The liver is diffuse hypodense compared to the spleen, consistent with diffuse hepatic diffuse hepatic steatosis. No focal hepatic lesions. No biliary ductal dilation. GALLBLADDER: There are cholecystectomy clips. SPLEEN: No splenomegaly. PANCREAS: No focal masses or ductal dilatation. ADRENALS: No adrenal nodules KIDNEYS/URETERS: Kidneys enhance symmetrically. No hydronephrosis. No cystic or solid mass lesions. No stones. GI TRACT: No abnormal distention, wall thickening, or evidence of bowel obstruction. Appendix is normal. PELVIC ORGANS/BLADDER: Hysterectomy. No adnexal masses. Moderate urinary bladder distention. LYMPH NODES: No lymphadenopathy. VESSELS: Arterial calcifications. Small calcified splenic artery aneurysms, none larger than 1 cm. PERITONEUM / RETROPERITONEUM: No free air or fluid. BONES: There are degenerative changes in the spine. Osseous demineralization. SOFT TISSUES: Unremarkable. IMPRESSION: Findings in the lower lungs are compatible with multifocal pneumonia, possibly aspiration, viral pneumonia is also consideration. Moderate sliding gastric hernia hernia. Moderate urinary bladder distention, correlate for urinary retention. Hepatic steatosis. Signed by: Guicho Benites DO on 01/22/2020 10:50 PM Dictated By: GUICHO BENITES DO 49 Transcribed By: NABIL on 01/22/202249 COPY TO: VICTORIANO SIDDIQI MD~ Procedures 12 Lead ECG Interpretation ECG Interpretation : ECG: ECG 1 Certified Lactation Educator: Interpreted by ED physician Date: Jan 22, 2020 Time: 19:21 Prior ECG tracings: reviewed (UNCHANGED FROM PREVIOUS) Rhythm: sinus tachycardia Rate: tachycardia BPM: 108 QRS axis: left Conduction: left bundle branch block ST segments normal: No (NON SPECIFIC CHANGES) T waves normal: Yes Other findings: no other findings Clinical Impression: abnormal ECG Assessment & Plan Medical Decision Making MDM PT WITH RIGHT SIDE ABD PAIN CBC, CMP, AMYLASE, LIPASE, UA, EKG,LACTIC ACID, BLOOD CULTURES, URINE CULTURECARDIAC ENZYMES, CT ABD/PELVIS ORDERED TO EVAL FOR MYOCARDIAL INFARCTION, PANCREATITIS, UTI, APPENDICITIS, CHOLECYSTITIS, ELEVATED LFT'S, SEPSIS TYLENOL 650 MG PO ORDERED ZOSYN 3.375 GRAMS IV ORDERED NS 1 LITER IV BOLUS ORDERED Reassessment Reassessment time: 23:32 Reassessment PT STATES SHE FEELS GOOD AND WANTS TO GO HOME, PT IS STABLE FOR DISCHARGE Assessment & Plan Final Impression: (1) UTI (urinary tract infection) (2) Pneumonia Depart Disposition: HOME, SELF-CARE Last Vital Signs Date Time Temp Pulse Resp B/P (MAP) Pulse Ox O2 Delivery O2 Flow Rate FiO2 01/22/20 19:08 98.2 105 17 149/92 96 Room Air Home Meds Reported Medications Metformin Hcl (METFORMIN HCL) 500 Mg Tablet, 500 MG PO BID 09/24/18 Fenofibrate (FENOFIBRATE) 54 Mg Tablet, 54 MG PO DAILY 09/24/18 Diltiazem Hcl (DILT-XR) 240 Mg Cap.er.deg, 240 MG PO DAILY 09/24/18 Aspirin (ASPIRIN EC) 81 Mg Tablet.dr, 81 MG PO DAILY 09/24/18 Simvastatin (SIMVASTATIN) 40 Mg Tablet, 40 MG PO DAILY 09/24/18 Levothyroxine Sodium (LEVOTHYROXINE SODIUM) 100 Mcg Tablet, 100 MCG PO DAILY 09/24/18 VICTORIANO SIDDIQI MD Jan 22, 2020 19:29
[2020-01-22] MEDS ORDERED: SODIUM CHLORIDE 0.9% 1000ML 1,000 ML IV ONE (19:30)
[2020-01-22] MEDS ORDERED: PIPER-TAZ 3.375 GM 50 ML IV ONE (19:30)
[2020-01-22] MEDS ORDERED: ACETAMINOPHEN 325 MG TAB PO ONE (19:30)
[2020-01-22 20:20] LABS: BASOPHILS # (AUTO) 0.1 (0.0-0.1); BASOPHILS % 1.3 % (0.0-1.0); EOSINOPHILS # (AUTO) 0.1 (0.0-0.4); HEMATOCRIT 37.7 % (34.2-44.1); HEMOGLOBIN 12.1 g/dL (12.0-16.0); LYMPHOCYTES # (AUTO) 1.3 (1.0-3.2); LYMPHOCYTES % 13.2 % (18.0-39.1); MEAN CORPUSCULAR HEMOGLOBIN 30.9 pg (28-32); MEAN CORPUSCULAR HGB CONC 32.1 g/dL (31-35); MEAN CORPUSCULAR VOLUME 96.2 fL (81-99); MONOCYTES # (AUTO) 0.6 (0.2-0.8); MONOCYTES % 5.9 % (4.4-11.3); NEUTROPHILS # (AUTO) 7.5 (2.1-6.9); NEUTROPHILS % 77.7 % (38.7-80.0); PLATELET COUNT 623 x10e3/uL (140-360); RED BLOOD COUNT 3.92 x10e6/uL (3.6-5.1); RED CELL DISTRIBUTION WIDTH 14.2 % (11.7-14.4)
[2020-01-22 20:41] LABS: ALBUMIN 3.2 g/dL (3.5-5.0); ALBUMIN/GLOBULIN RATIO 0.7 (0.8-2.0); AMYLASE 29 U/L (25-125); ANION GAP 11.7 mmol/L (8-16); CALCIUM 8.7 mg/dL (8.4-10.2); CREATININE, SERUM 0.93 mg/dL (0.57-1.11); LIPASE 14 U/L (8-78); POTASSIUM 3.7 mmol/L (3.5-5.1)
[2020-01-22 20:50] LABS: CREATINE KINASE MB 0.9 ng/mL (0-5.0)
--- OUTSIDE RECORDS SUMMARY | 2020-01-22 20:50 | XMS REPORT | Continuity of Care Document ---
Author Author [facility] t Organization [facility] Address [address] [place] [address] [address] [place] [address] Phone Unavailable Care Team Providers Care Parquet Floor Layer Name Role Phone Karlee ROQUE MD (PELON) DEBORAH PCP RUSSO, TREE Attphys Unavailable RUSSO, TREE Admphys Unavailable Payers Payer Name Policy Type Policy Number Effective Date Expiration Date [employer] [id number] 2018 00:00:00 LUCRECIA hernandez [facility] Problems Condition Name Condition Details Condition Category Status Onset Date Resolution Date Last Treatment Date Treating Clinician Comments Source Renal disorder due to type 2 diabetes mellitus Renal D isorder Due to Type 2 Diabetes Mellitus Problem Active 2017-07-23 00:00:00 [facility] Peripheral circulatory disorder associated with type 2 diabetes mellitus Peripheral Circulatory Disorder Associated with Type 2 Diabetes Mellitus Problem Active 2017-07-23 00:00:00 [facility] Chronic kidney disease stage 3 Chronic Kidney Disease Stage 3 Probl em Active 2017-07-23 00:00:00 [facility] Hypothyroidism Hypothyroidism Problem Active 2015-03-06 00:00:00 [facility] Pure hypercholesterolemia Pure Hypercholesterolemia Problem Ac tive 2015-03-06 00:00:00 [facility] Pure hyperglyceridemia Pure Hyperglyceridemia Problem Active 2015-03-06 00:00:00 [facility] Hypertensive disorder Hypertensive Disorder Problem Active 201 09-03-10 00:00:00 [facility] yoav Type 2 diabetes mellitus Type 2 Diabetes Mellitus Problem Acti ve 2015-03-06 00:00:00 2017-07-23 00:00:00 [facility] Allergies, Adverse Reactions, Alerts This patient has no known allergies or adverse reactions. Social History Smoking Status Start Date Stop Date Source Never Smoker [facility] Medications Ordered Medication Name Filled Medication Name Start Date Stop Da te Current Medication? Ordering Clinician Indication Dosage Frequency Signature (SIG) Comments Components Source benazepril 20 mg-hydrochlorothiazide 25 mg tablet Take 1 tablet every day by oral route for 90 days. benazepril 20 mg-hydrochlorothiazide 25 mg tablet Take 1 tablet every day by oral route for 90 days. No 1 Q1D benazepril 20 mg- hydrochlorothiazide 25 mg tablet Take 1 tablet every day by oral route for 90 days. [facility] DILT-XR 240 mg capsule, extended release Take 1 capsule every day by oral route for 90 days. DILT-XR 240 mg capsule, extended release Take 1 capsule every day by oral route for 90 days. No 1capsule(s) Q 1D DILT-XR 240 mg capsule, extended release Take 1 capsule every day by oral route for 90 days. [facility] Levemir FlexTouch U-100 Insulin 100 unit /mL (3 mL) subcutaneous pen Inject 10 units every day by subcutaneous route for 90 days. Levemir FlexTouch U-100 Insulin 100 unit/mL (3 mL) subcutaneous pen Inject 10 units every day by subcutaneous route for 90 days. No 10unit(s ) Q1D Levemir FlexTouch U-100 Insulin 100 unit/mL (3 mL) subcutaneous pen Inject 10 units every day by subcutaneous route for 90 days. [facility] levothyroxine 75 mcg tablet Take 1 tablet every day by oral route for 90 days. levothyroxine 75 mcg tablet Take 1 tablet every day by oral route for 90 days. No 1 Q1D levothyrox ine 75 mcg tablet Take 1 tablet every day by oral route for 90 days. [facility] metformin 500 mg tablet Take 1 tablet twice a day by o ral route for 90 days. metformin 500 mg tablet Take 1 tablet twice a day by oral route for 90 days. No 1 BID metformin 500 mg tablet Take 1 tablet twice a day by oral route for 90 days. [facility] simvastatin 40 mg tablet Take 1 tablet every day by or al route for 90 days. simvastatin 40 mg tablet Take 1 tablet every day by oral route for 90 days. No 1 Q1D simvastatin 40 mg tablet Take 1 tablet every day by oral route for 90 days. [facility] Aspirin (Aspirin Ec) 81 Mg Tablet. Aspirin (Aspirin Ec) 81 Mg Tab let. Yes [address] [facility] Diltiazem Hcl (Dilt-Xr) 240 Mg Cap.er.deg Diltiazem Hc l (Dilt-Xr) 240 Mg Cap.er.deg Yes 240 Daily [facility] Fenofibrate 54 Mg Tablet Fenofibrate 54 Mg Tablet Yes 54 Daily [facility] Levothyroxine Sodium 100 Mcg Tablet Levothyroxine Sodium 100 Mcg Tabl et Yes 100 Daily [facility] Metformin Hcl 500 Mg Tablet Metformin Hcl 500 Mg Tablet Yes 500 Twice A Day [facility] Simvastatin 40 Mg Tablet Simvastatin 40 Mg Tablet Yes 40 Daily [facility] Benazepril/Hydrochlorothiazide (Benazepr il-Hctz 20-25 Mg Tab) 1 Each Tablet, 1 Tab Oral Benazepril/Hydrochlorothiazide (Benazepr il-Hctz 20-25 Mg Tab) 1 Each Tablet, 1 Tab Oral 2018-09-28 00:00:00 No 1 Daily [facility] benzonatate 150 mg capsule Take 1 capsul e 3 times a day by oral route as needed for 5 days. benzonatate 150 mg capsule Take 1 capsul e 3 times a day by oral route as needed for 5 days. 2017-07-23 00:00:00 No 1capsule(s) TID benzonatate 150 mg capsule Take 1 capsule 3 times a day by oral route as needed for 5 days. [facility] glimepiride 4 mg tablet TAKE ONE TABLET BY MOUTH ONCE DAILY IN THE MORNING WITH BREAKFAST OR THE FIRST MAIN MEAL OF THE DAY glimepiride 4 mg tablet TAKE ONE TABLET BY MOUTH ONCE DAILY IN THE MORNING WITH BREAKFAST OR THE FIRST MAIN MEAL OF THE DAY 2017-07-23 00:00:00 No g limepiride 4 mg tablet TAKE ONE TABLET BY MOUTH ONCE DAILY IN THE MORNING WITH BREAKFAST OR THE FIRST MAIN MEAL OF THE DAY [facility] levothyroxine 50 mcg tablet TAKE ONE TABLET BY MOUTH O NCE DAILY levothyroxine 50 mcg tablet TAKE ONE TABLET BY MOUTH ONCE DAILY 2017-07-23 00:00:00 No levothyroxine 50 mcg tablet TAKE ONE TABLET BY MOUTH ONCE DAILY [facility] Tylenol Arthritis Pain 650 mg tablet,ext ended release Take 1 tablet every 8 hours by oral route as needed for 10 days. Tylenol Arthritis Pain 650 mg tablet,extended release Take 1 tablet every 8 hours by oral route as needed for 10 days. 2017-07-23 00:00:00 No 1 Q8H Tyl enol Arthritis Pain 650 mg tablet,extended release Take 1 tablet every 8 hours by oral route as needed for 10 days. [facility] Victoza 2-Jermaine 0.6 mg/0.1 mL (18 mg/3 mL) subcutaneous pen injector Inject 1.2 mg every day by subcutaneous route for 30 days. Victoza 2-Jermaine 0.6 mg/0.1 mL (18 mg/3 mL) subcutaneous pen injector Inject 1.2 mg every day by subcutaneous route for 30 days. 2017-07-23 00:00:00 No 1.2mg Q1D Victoza 2-Jermaine 0.6 mg/0.1 mL (18 mg/3 mL) subcutaneous pen injector Inject 1.2 mg every day by subcutaneous route for 30 days. [facility] % topical cream APPLY TO THE AFFECTED AND SURROUNDING AREAS OF SKIN BY TOPICAL ROUTE 2 TIMES PER DAY IN THE MORNING AND EVENING clotrimazole 1 % topical cream APPLY TO THE AFFECTED AND SURROUNDING AREAS OF SKIN BY TOPICAL ROUTE 2 TIMES PER DAY IN THE MORNING AND EVENING 2017-02-10 00:00:00 N o clotrimazole 1 % topical cream APPLY TO THE AFFECTED AND SURROUNDING AREAS OF SKIN BY TOPICAL ROUTE 2 TIMES PER DAY IN THE MORNING AND EVENING [facility] meloxicam 15 mg tablet meloxicam 15 mg tablet 2017-02-10 00:00:00 No meloxicam 15 mg tablet [facility] meloxicam 7.5 mg tablet TAKE ONE TABLET BY MOUTH ONCE DAILY meloxicam 7.5 mg tablet TAKE ONE TABLET BY MOUTH ONCE DAILY 2016-06-01 00:00:00 No meloxicam 7.5 mg tablet TAKE ONE TABLET BY MOUTH ONCE DAILY [facility] Cartia XT 240 mg capsule,extended release Cartia XT 24 0 mg capsule,extended release 2016-03-25 00:00:00 No Cart ia XT 240 mg capsule,extended release [facility] gl[facility] 2 mg tablet glimepiride 2 mg tablet 2016-03-25 00:00 :00 No glimepiride 2 mg tablet [facility] levothyroxine 100 mcg tablet levothyroxine 100 mcg tablet 2016-03-25 00:00:00 No levothyroxine 100 mcg tablet [facility] levothyroxine 125 mcg tablet levothyroxine 125 mcg tablet 2016-03-25 00:00:00 No levothyroxine 125 mcg tablet [facility] simvastatin 10 mg tablet simvastatin 10 mg tablet 2016-03-25 00: 00:00 No simvastatin 10 mg tablet [facility] Immunizations Ordered Immunization Name Filled Immunization Name Date Status Comments Source influenza, high dose seasonal influenza, high dose seasonal 2016 14:18:00 Completed [facility] pneumococcal polysaccharide PPV23 pneumococcal polysaccharid e PPV23 2016-03-25 18:27:00 Completed [facility] ice influenza, injectable, quadrivalent influenza, injectable, q uadrivalent 2015-03-06 00:00:00 Completed [facility] Vital Signs Vital Name Observation Time Observation Value Comments Source BP Diastolic 2017-07-23 00:00:00 76 mm[Hg] [facility] Height 2017-07-23 00:00:00 58.5 [in_i] [facility] BMI (Body Mass Index) 2017-07-23 00:00:00 24.7 kg/m2 [facility] BP Systolic 2017-07-23 00:00:00 136 mm[Hg] [facility] Body Weight 2017-07-23 00:00:00 120 [lb_av] [facility] BP Diastolic 2017-02-23 00:00:00 77 mm[Hg] [facility] Height 2017-02-23 00:00:00 58.5 [in_i] [facility] BMI (Body Mass Index) 2017-02-23 00:00:00 24 kg/m2 [facility] BP Systolic 2017-02-23 00:00:00 133 mm[Hg] [facility] Body Weight 2017-02-23 00:00:00 117 [lb_av] [facility] BP Diastolic 2017-02-10 00:00:00 92 mm[Hg] [facility] Height 2017-02-10 00:00:00 58.5 [in_i] [facility] BMI (Body Mass Index) 2017-02-10 00:00:00 24.2 kg/m2 [facility] BP Systolic 2017-02-10 00:00:00 163 mm[Hg] [facility] Body Weight 2017-02-10 00:00:00 118 [lb_av] [facility] BP Diastolic 2016-06-01 00:00:00 80 mm[Hg] [facility] Height 2016-06-01 00:00:00 58.5 [in_i] [facility] BMI (Body Mass Index) 2016-06-01 00:00:00 26 kg/m2 [facility] BP Systolic 2016-06-01 00:00:00 146 mm[Hg] [facility] Body Weight 2016-06-01 00:00:00 126.4 [lb_av] [facility] BP Diastolic 2016-03-25 00:00:00 101 mm[Hg] [facility] Height 2016-03-25 00:00:00 58.5 [in_i] [facility] BMI (Body Mass Index) 2016-03-25 00:00:00 26.6 kg/m2 [facility] BP Systolic 2016-03-25 00:00:00 171 mm[Hg] [facility] Body Weight 2016-03-25 00:00:00 129.6 [lb_av] [facility] BP Diastolic 2015-09-20 00:00:00 71 mm[Hg] [facility] Height 2015-09-20 00:00:00 58.5 [in_i] [facility] BMI (Body Mass Index) 2015-09-20 00:00:00 26.09 kg/m2 [facility] BP Systolic 2015-09-20 00:00:00 122 mm[Hg] [facility] Body Weight 2015-09-20 00:00:00 127 [lb_av] [facility] BP Diastolic 2015-09-16 00:00:00 74 mm[Hg] [facility] Height 2015-09-16 00:00:00 58.5 [in_i] [facility] BMI (Body Mass Index) 2015-09-16 00:00:00 26.21 kg/m2 [facility] BP Systolic 2015-09-16 00:00:00 127 mm[Hg] [facility] Body Weight 2015-09-16 00:00:00 127.6 [lb_av] [facility] BP Diastolic 2015-07-26 00:00:00 67 mm[Hg] [facility] Height 2015-07-26 00:00:00 58.5 [in_i] [facility] BMI (Body Mass Index) 2015-07-26 00:00:00 25.72 kg/m2 [facility] BP Systolic 2015-07-26 00:00:00 121 mm[Hg] [facility] Body Weight 2015-07-26 00:00:00 125.2 [lb_av] [facility] BP Diastolic 2015-07-11 00:00:00 71 mm[Hg] [facility] Height 2015-07-11 00:00:00 58.5 [in_i] [facility] BMI (Body Mass Index) 2015-07-11 00:00:00 25.47 kg/m2 [facility] BP Systolic 2015-07-11 00:00:00 122 mm[Hg] [facility] Body Weight 2015-07-11 00:00:00 124 [lb_av] [facility] BP Diastolic 2015-03-06 00:00:00 80 mm[Hg] [facility] Height 2015-03-06 00:00:00 58.5 [in_i] [facility] BMI (Body Mass Index) 2015-03-06 00:00:00 23.75 kg/m2 [facility] BP Systolic 2015-03-06 00:00:00 110 mm[Hg] [facility] Body Weight 2015-03-06 00:00:00 115.6 [lb_av] [facility] BP Diastolic 2014-06-18 00:00:00 78 mm[Hg] [facility] Height 2014-06-18 00:00:00 58.5 [in_i] [facility] BMI (Body Mass Index) 2014-06-18 00:00:00 27.12 kg/m2 [facility] BP Systolic 2014-06-18 00:00:00 120 mm[Hg] [facility] Body Weight 2014-06-18 00:00:00 132 [lb_av] [facility] BP Diastolic 2014-02-14 00:00:00 90 mm[Hg] [facility] Height 2014-02-14 00:00:00 58.5 [in_i] [facility] BMI (Body Mass Index) 2014-02-14 00:00:00 22.97 kg/m2 [facility] BP Systolic 2014-02-14 00:00:00 140 mm[Hg] [facility] Body Weight 2014-02-14 00:00:00 111.8 [lb_av] [facility] Height 2013-08-07 00:00:00 58.5 [in_i] [facility] Body Weight 2013-08-07 00:00:00 114.8 [lb_av] [facility] Height 2013-02-13 00:00:00 58.5 [in_i] [facility] Body Weight 2013-02-13 00:00:00 117 [lb_av] [facility] Height 2012-11-16 00:00:00 58.5 [in_i] [facility] Body Weight 2012-11-16 00:00:00 117.4 [lb_av] [facility] Height 2012-06-30 00:00:00 58.5 [in_i] [facility] Body Weight 2012-06-30 00:00:00 124.6 [lb_av] [facility] Height 2011-12-07 00:00:00 58.5 [in_i] [facility] Body Weight 2011-12-07 00:00:00 133.4 [lb_av] [facility] Height 2011-12-03 00:00:00 58.5 [in_i] [facility] Body Weight 2011-12-03 00:00:00 132.4 [lb_av] [facility] Height 2011-06-05 00:00:00 58.5 [in_i] [facility] Body Weight 2011-06-05 00:00:00 127 [lb_av] [facility] Height 2010-11-03 00:00:00 58.5 [in_i] [facility] Body Weight 2010-11-03 00:00:00 132.6 [lb_av] [facility] Height 2010-07-21 00:00:00 58.5 [in_i] [facility] Body Weight 2010-07-21 00:00:00 132 [lb_av] [facility] Body Weight 2010-05-16 00:00:00 136 [lb_av] [facility] Height 2010-05-02 00:00:00 58.5 [in_i] [facility] Body Weight 2010-05-02 00:00:00 132.8 [lb_av] [facility] Height 2009-12-25 00:00:00 58.5 [in_i] [facility] Body Weight 2009-12-25 00:00:00 137.8 [lb_av] [facility] Body Weight 2009-10-01 00:00:00 135.2 [lb_av] [facility] Height 2009-06-13 00:00:00 58.5 [in_i] [facility] Body Weight 2009-06-13 00:00:00 127 [lb_av] [facility] Body Weight 2009-04-16 00:00:00 134 [lb_av] [facility] Body Weight 2009-02-01 00:00:00 129 [lb_av] [facility] Body Weight 2008-12-27 00:00:00 126 [lb_av] [facility] Height 2008-10-31 00:00:00 58 [in_i] [facility] Body Weight 2008-10-31 00:00:00 131 [lb_av] [facility] Height 2008-07-31 00:00:00 57 [in_i] [facility] Body Weight 2008-07-31 00:00:00 136 [lb_av] [facility] Procedures Procedure Date / Time Performed Performing Clinician Kalyn judith Computed tomography of chest without contrast 2018-09-26 00:00:0 0 RAFAELA [facility] CT of abdomen and pelvis without contrast 2018-09-26 00:00:00 TR DARIO [facility] X-ray of chest, two views 2018 00:00:00 ROSA LUX [facility] US, doppler, arterial 2017-07-23 [facility] dual photon absorptiometry 2017-02-10 00:00:00 [facility] Plan of Care Planned Activity Planned Date Details Comments Source Instructions [facility] Instructions [facility] Encounters Start Date/Time End Date/Time Encounter Type Admission Type Attendi [facility] Care Department Encounter ID Source 2019-05-18 16:23:00 2019-05-18 18:44:00 Departed Emergency Room [facility] [id number] [facility] 2018-09-26 19:06:00 2018-09-28 11:03:00 Discharged Inpatient 1 TREE RUSSO [facility] [id number] [facility] 2017-07-23 00:00:00 2017-07-23 00:00:00 CODEY Turner: [address], [place] [address], Ph. [facility] [id number] [facility] 2017-02-23 00:00:00 2017-02-23 00:00:00 Marilyn Zabala, ACID TREATER: [address] [facility], [address], [place] [address], Ph. [facility] [id number] [facility] 2017-02-10 00:00:00 2017-02-10 00:00:00 Marilyn Vj, ACID TREATER: [address] [facility] [address], [place] [address], Ph. [facility] [id number] [facility] 2016-06-01 00:00:00 2016-06-01 00:00:00 Deborah Roque MD: [address] [facility] [address], [place] [address], Ph. [facility] [id number] [facility] 2016-03-25 00:00:00 2016-03-25 00:00:00 Deborah Roque MD: [address] [facility], [address], [place] [address], Ph. [facility] [id number] [facility] Results Test Description Test Time Test Comments Results Result Comments Source Bedside Glucose 2018-09-28 07:41:00 Test Item Bedside Glucose (test code = 30748-1) 101 70-120 Meter ID: [id number] [facility] 2018-09-28 07:41:00* Test Item Value Reference Range Interpretation Comments Bedside Glucose (test code = 77388-0) 101 70-120 Meter ID: [id number] [facility] 2018-09-27 09:50:00* Test Item Value Reference Range Interpretation Comments Urine Culture (test code = 630-4) Organism: ESCHERICHIA COLI [facility] [id number] 09:50:00* Test Item Value Reference Range Interpretation Comments Urine Culture (test code = 630-4) No Result Data Provided [facility] [id number] 21:11:00 [facility] [address] [address] Patient Name: VIVIANA MALIK MR #: [id number] : 1935 Age/Sex: 83/F Req #: [id number] Adm Physician: TREE RUSSO MD Ordered by: TREE RUSSO MD Report #: [id number] Location: [facility] Room/Bed: [facility] Procedure: [id number] CT/CT CHEST WO Exam Date: 09/26/18 Exam Time: 2038 REPORT STATUS: Signed EXAM: CT ABDOMEN/ PELVIS WO, CT CHEST WO DATE: 09/26/2018 7:04 PM INDICATION: 83-year-old fem augustin, history per family cannot eat, weight loss, weeks COMPARISON: None TECHNIQUE: The chest, abdomen and pelvis were scanned using a multidetector [facility] scanner. Coronal and sagittal reformations were obtained. CT low dose t echniques were utilized, as applicable. IV Contrast: 0 ml Isovue 300/370 FINDINGS: Lack of IV contrast decreases sensitivity. Lungs and Airways: Th e lungs and airways are normal with no focal abnormality demonstrated. Tiny 6 mm pulmonary micronodule in the superior left lower lobe. Other scattered micr onodules measuring less than 4 mm are present. Pleura: The pleural spaces are clear. Heart and mediastinum: The thyroid gland is normal. No signific ant mediastinal, hilar or axillary lymphadenopathy is seen. The heart and pe ricardium are within normal limits. LIVER/BILIARY: No masses. No ducta l dilatation. GALLBLADDER: Cholecystectomy. SPLEEN: Unremarkable PANCRE : Unremarkable ADRENALS: No nodules KIDNEYS: Mild left-sided hydronephr osis. GI TRACT: No wall thickening or evidence of obstruction. V ESSELS: Atherosclerotic vascular calcifications. PERITONEUM/RETROPERITONEUM: N o free air or fluid LYMPH NODES: No lymphadenopathy REPRODUCTIVE ORGANS/B LADDER: Unremarkable SOFT TISSUES: Unremarkable BONES: No suspicious bone lesions. IMPRESSION: Mild left hydronephrosis may be related to incomple te bladder evacuation. 6 mm superior left lower lobe pulmonary micronodule, consider follow-up in 6-12 months. Signed by: Jermaine Barbour MD on 09/27/19 9:20 PM Dictated By: ANY BARBOUR MD 19 Transcribed By: NABIL on 09/26/182119 COPY TO: TREE RUSSO MD CT ABDOMEN/PELVIS [id number] 21:11:[address] [address] Patient Name: VIVIANA MALIK MR #: [id number] : 1935 Age/Sex: 83/F Req #: [id number] Adm Physician: TREE RUSSO MD Ordered by: TREE RUSSO MD Report #: [id number] Location: MED/SURG3 Room/Bed: [facility] Procedure: [id number] CT/CT ABDOMEN/PELVIS WO Exam Date: 09/26/18 Exam Time: 203 9 REPORT STATUS: Signed EXAM: CT ABDOMEN/PELVIS WO, CT CHEST WO DATE: 09/26/2018 7:04 PM INDICATION: 83-yea r-old female, history per family cannot eat, weight loss, weeks COMPARISON: None TECHNIQUE: The chest, abdomen and pelvis were scanned using a multidete ctor helical scanner. Coronal and sagittal reformations were obtained. CT low dose techniques were utilized, as applicable. IV Contrast: 0 ml Isovue 300 /370 FINDINGS: Lack of IV contrast decreases sensitivity. Lungs and Air ways: The lungs and airways are normal with no focal abnormality demonstrated . Tiny 6 mm pulmonary micronodule in the superior left lower lobe. Other scatt ered micronodules measuring less than 4 mm are present. Pleura: The pleura l spaces are clear. Heart and mediastinum: The thyroid gland is normal. No significant mediastinal, hilar or axillary lymphadenopathy is seen. The heart and pericardium are within normal limits. LIVER/BILIARY: No masses. No ductal dilatation. GALLBLADDER: Cholecystectomy. SPLEEN: Unremarkable PANCREAS: Unremarkable ADRENALS: No nodules KIDNEYS: Mild left-sided h ydronephrosis. GI TRACT: No wall thickening or evidence of obstruction. VESSELS: Atherosclerotic vascular calcifications. PERITONEUM/RETROPERI TONEUM: No free air or fluid LYMPH NODES: No lymphadenopathy REPRODUCTIVE ORGANS/BLADDER: Unremarkable SOFT TISSUES: Unremarkable BONES: No suspic ious bone lesions. IMPRESSION: Mild left hydronephrosis may be related to incomplete bladder evacuation. 6 mm superior left lower lobe pulmonary lindsay ronodule, consider follow-up in 6-12 months. Signed by: Jermaine Barbour MD on 09/26/2018 9:20 PM Dictated By: ANY BARBOUR MD 19 Transcribed By: NABIL on 09/26/182119 COPY TO: TREE RUSSO MD Vitamin B12 [id number] 07:18:00* Test Item Value Reference Range Interpretation Comments Vitamin B12 Level (test code = 37017-8) [phone] [facility] 07:18:00* Test Item Value Reference Range Interpretation Comments Folate (test code = 2284-8) 10.9 7.0-15.4 [facility] H[facility]one (TSH) 2018-09-26 07:18:00* Test Item Value Reference Range Interpretation Comments Thyroid Stimulating Hormone (TSH) (test code = 70382-7) 1.972 0.350-4.940 [facility] [facility] DallasVitamin B12 [id number] 07:18:00* Test Item Value Reference Range Interpretation Comments Vitamin B12 Level (test code = 86934-0) 671 213-816 [facility] DallasFolate2019-06-03 07:18:00* Test Item Value Reference Range Interpretation Comments Folate (test code = 2284-8) 10.9 7.0-15.4 [facility] DallasThyroid Stimulating Hormone (TSH) 2018-09-26 07:18:00* Test Item Value Reference Range Interpretation Comments Thyroid Stimulating Hormone (TSH) (test code = 65750-5) 1.972 0.350-4.940 [facility] DallasPhosphorus Ardck9897-38-88 06:53:00* Test Item Value Reference Range Interpretation Comments Phosphorus Level (test code = DQZ2181) 2.7 2.3-4.7 [facility] DallasMagnesium Ldevs5379-84-84 06:53:00* Test Item Value Reference Range Interpretation Comments Magnesium Level (test code = 54405-7) 1.8 1.3-2.1 [facility] DallasPhosphorus Bqddm3658-07-93 06:53:00* Test Item Value Reference Range Interpretation Comments Phosphorus Level (test code = TER2419) 2.7 2.3-4.7 [facility] DallasMagnesium Edctl9722-57-79 06:53:00* Test Item Value Reference Range Interpretation Comments Magnesium Level (test code = 35135-9) 1.8 1.3-2.1 [facility] Gbunr7637-99-41 06:25:00* Test Item Value Reference Range Interpretation Comments Sodium Level (test code = 2951-2) 142 136-145 [facility] DallasPotassium Fzdrt5762-05-78 06:25:00* Test Item Value Reference Range Interpretation Comments Potassium Level (test code = 2823-3) 3.7 3.5-5.1 [facility] DallasChloride Pkdaj4118-64-10 06:25:00* Test Item Value Reference Range Interpretation Comments Chloride Level (test code = 2075-0) 110 98-107 H [facility] DallasCarbon Dioxide Mbxcw3651-23-88 06:25:00* Test Item Value Reference Range Interpretation Comments Carbon Dioxide Level (test code = 2028-9) 27 22-29 [facility] DallasAnion [id number] 06:25:00* Test Item Value Reference Range Interpretation Comments Anion Gap (test code = 32055-1) 8.7 8-16 [facility] DallasBlood Urea Rdkrvgas0063-78-95 06:25:00* Test Item Value Reference Range Interpretation Comments Blood Urea Nitrogen (test code = 3094-0) 8 7-26 [facility] DallasCreatinine2019-06-03 06:25:00* Test Item Value Reference Range Interpretation Comments Creatinine (test code = 2160-0) 0.73 0.57-1.11 [facility] DallasBUN/Creatinine Nubeb7060-08-61 06:25:00* Test Item Value Reference Range Interpretation Comments BUN/Creatinine Ratio (test code = 3097-3) 11 6- [facility] DallasEstimat Glomerular Filtration Rate 2018-09-26 06:25:00* Test Item Value Reference Range Interpretation Comments Estimat Glomerular Filtration Rate (test code = 470177326) > 60 >60 Ranges were taken from the National Kidney Disease Education Program and the [facility] literature.Reference ranges:60 or greater: Xgxwsg44-74 ( for 3 consecutive months): Chronic kidney disease 15 or less: Kidney failureBaylor Scott & [facility] – DallasGlucose Nwhwz0207-83-94 06:25:00* Test Item Value Reference Range Interpretation Comments Glucose Level (test code = IXE4503) 97 74-118 [facility] DallasCalcium Qecfn5651-46-12 06:25:00* Test Item Value Reference Range Interpretation Comments Calcium Level (test code = 16611-3) 8.3 8.4-10.2 L [facility]odium Bfxyw8581-50-70 06:25:00* Test Item Value Reference Range Interpretation Comments Sodium Level (test code = 2951-2) 142 136-145 [facility] DallasPotassium Svfhe4817-75-59 06:25:00* Test Item Value Reference Range Interpretation Comments Potassium Level (test code = 2823-3) 3.7 3.5-5.1 [facility] DallasChloride Wbhjb1123-80-33 06:25:00* Test Item Value Reference Range Interpretation Comments Chloride Level (test code = 2075-0) 110 98-107 H [facility] DallasCarbon Dioxide Bayap6710-95-76 06:25:00* Test Item Value Reference Range Interpretation Comments Carbon Dioxide Level (test code = 2028-9) 27 22-29 [facility] DallasAnion Xdy8399-70-25 06:25:00* Test Item Value Reference Range Interpretation Comments Anion Gap (test code = 76908-0) 8.7 8-16 [facility] DallasBlood Urea Cygfxwsg2270-04-45 06:25:00* Test Item Value Reference Range Interpretation Comments Blood Urea Nitrogen (test code = 3094-0) 8 7-26 [facility] DallasCreatinine2019-06-03 06:25:00* Test Item Value Reference Range Interpretation Comments Creatinine (test code = 2160-0) 0.73 0.57-1.11 [facility] DallasBUN/Creatinine Tfpww0064-76-06 06:25:00* Test Item Value Reference Range Interpretation Comments BUN/Creatinine Ratio (test code = 3097-3) 11 6-25 [facility] DallasEstimat Glomerular Filtration Rate 2018-09-26 06:25:00* Test Item Value Reference Range Interpretation Comments Estimat Glomerular Filtration Rate (test code = 303474628) > 60 >60 Ranges were taken from the National Kidney Disease Education Program and the [facility] literature.Reference ranges:60 or greater: Giyfsq21-29 ( for 3 consecutive months): Chronic kidney disease 15 or less: Kidney failureBaylor Scott & [facility] – DallasGlucose Ugrue3432-76-04 06:25:00* Test Item Value Reference Range Interpretation Comments Glucose Level (test code = TVO3589) 97 74-118 [facility] DallasCalcium Iggig0245-71-09 06:25:00* Test Item Value Reference Range Interpretation Comments Calcium Level (test code = 13212-8) 8.3 8.4-10.2 L [facility] DallasWhite Blood Iktia4721-36-51 07:32:00* Test Item Value Reference Range Interpretation Comments White Blood Count (test code = 6690-2) 4.37 4.8-10.8 L [facility] DallasRed Blood Utcfg1843-68-62 07:32:00* Test Item Value Reference Range Interpretation Comments Red Blood Count (test code = 789-8) 3.26 3.6-5.1 L [facility] DallasHemoglobin2019-06-02 07:32:00* Test Item Value Reference Range Interpretation Comments Hemoglobin (test code = 81852-1) 10.2 12.0-16.0 L [facility] DallasHematocrit2019-06-02 07:32:00* Test Item Value Reference Range Interpretation Comments Hematocrit (test code = 4544-3) 28.3 34.2-44.1 L [facility] DallasMean Corpuscular Uhmelm3033-26-21 07:32:00* Test Item Value Reference Range Interpretation Comments Mean Corpuscular Volume (test code = 787-2) 86.8 81-99 [facility] DallasMean Corpuscular Lbkuuyxdgd7994-79-39 07:32:00* Test Item Value Reference Range Interpretation Comments Mean Corpuscular Hemoglobin (test code = 785-6) 31.3 28-32 [facility] DallasMean Corpuscular Hemoglobin Concent 2018-09-25 07:32:00* Test Item Value Reference Range Interpretation Comments Mean Corpuscular Hemoglobin Concent (test code = 786-4) 36.0 31-35 H [facility] DallasRed Cell Distribution Ltpvk7762-85-35 07:32:00* Test Item Value Reference Range Interpretation Comments Red Cell Distribution Width (test code = 64203-8) 13.4 11.7 -14.4 [facility] DallasPlatelet Vnqoq5871-57-19 07:32:00* Test Item Value Reference Range Interpretation Comments Platelet Count (test code = 777-3) 517 140-360 H [facility] DallasNeutrophils (%) (Auto)2018-09-25 07:32:00 * Test Item Value Reference Range Interpretation Comments Neutrophils (%) (Auto) (test code = 96425-6) 55.0 38.7-80.0 [facility] DallasLymphocytes (%) (Auto)2018-09-25 07:32:00 * Test Item Value Reference Range Interpretation Comments Lymphocytes (%) (Auto) (test code = 736-9) 27.9 18.0-39.1 [facility] DallasMonocytes (%) (Auto)2018-09-25 07:32:00* Test Item Value Reference Range Interpretation Comments Monocytes (%) (Auto) (test code = 5905-5) 12.6 4.4-11.3 H [facility] DallasEosinophils (%) (Auto)2018-09-25 07:32:00 * Test Item Value Reference Range Interpretation Comments Eosinophils (%) (Auto) (test code = 713-8) 2.7 0.0-6.0 [facility] DallasBasophils (%) (Auto)2018-09-25 07:32:00* Test Item Value Reference Range Interpretation Comments Basophils (%) (Auto) (test code = 706-2) 1.6 0.0-1.0 H [facility] DallasIM GRANULOCYTES %2018-09-25 07:32:00* Test Item Value Reference Range Interpretation Comments IM GRANULOCYTES % (test code = IM GRANULOCYTES %) 0.2 0.0- 1.0 [facility] DallasNeutrophils # (Auto)2018-09-25 07:32:00* Test Item Value Reference Range Interpretation Comments Neutrophils # (Auto) (test code = 751-8) 2.4 2.1-6.9 [facility] DallasLymphocytes # (Auto)2018-09-25 07:32:00* Test Item Value Reference Range Interpretation Comments Lymphocytes # (Auto) (test code = 02734-1) 1.2 1.0-3.2 [facility] DallasMonocytes # (Auto)2018-09-25 07:32:00* Test Item Value Reference Range Interpretation Comments Monocytes # (Auto) (test code = 742-7) 0.6 0.2-0.8 [facility] DallasEosinophils # (Auto)2018-09-25 07:32:00* Test Item Value Reference Range Interpretation Comments Eosinophils # (Auto) (test code = 711-2) 0.1 0.0-0.4 [facility] DallasBasophils # (Auto)2018-09-25 07:32:00* Test Item Value Reference Range Interpretation Comments Basophils # (Auto) (test code = 704-7) 0.1 0.0-0.1 [facility] DallasAbsolute Immature Granulocyte (auto 2018-09-25 07:32:00* Test Item Value Reference Range Interpretation Comments Absolute Immature Granulocyte (auto (curtis t code = Absolute Immature Granulocyte (auto) 0.01 0-0.1 [facility] DallasWhite Blood Rkvvt8849-48-24 07:32:00* Test Item Value Reference Range Interpretation Comments White Blood Count (test code = 6690-2) 4.37 4.8-10.8 L [facility] DallasRed Blood Giuks8964-43-36 07:32:00* Test Item Value Reference Range Interpretation Comments Red Blood Count (test code = 789-8) 3.26 3.6-5.1 L [facility] DallasHemoglobin2019-06-02 07:32:00* Test Item Value Reference Range Interpretation Comments Hemoglobin (test code = 79228-5) 10.2 12.0-16.0 L [facility] DallasHematocrit2019-06-02 07:32:00* Test Item Value Reference Range Interpretation Comments Hematocrit (test code = 4544-3) 28.3 34.2-44.1 L [facility] DallasMean Corpuscular Lxqgly7711-02-66 07:32:00* Test Item Value Reference Range Interpretation Comments Mean Corpuscular Volume (test code = 787-2) 86.8 81-99 [facility] DallasMean Corpuscular Tmznwtzvlu8642-33-63 07:32:00* Test Item Value Reference Range Interpretation Comments Mean Corpuscular Hemoglobin (test code = 785-6) 31.3 28-32 [facility] DallasMean Corpuscular Hemoglobin Concent 2018-09-25 07:32:00* Test Item Value Reference Range Interpretation Comments Mean Corpuscular Hemoglobin Concent (test code = 786-4) 36.0 31-35 H [facility] DallasRed Cell Distribution Vtpnv2142-35-41 07:32:00* Test Item Value Reference Range Interpretation Comments Red Cell Distribution Width (test code = 61232-1) 13.4 11.7 -14.4 [facility] DallasPlatelet Vqont3551-53-92 07:32:00* Test Item Value Reference Range Interpretation Comments Platelet Count (test code = 777-3) 517 140-360 H [facility] DallasNeutrophils (%) (Auto)2018-09-25 07:32:00 * Test Item Value Reference Range Interpretation Comments Neutrophils (%) (Auto) (test code = 14766-4) 55.0 38.7-80.0 [facility] DallasLymphocytes (%) (Auto)2018-09-25 07:32:00 * Test Item Value Reference Range Interpretation Comments Lymphocytes (%) (Auto) (test code = 736-9) 27.9 18.0-39.1 [facility] DallasMonocytes (%) (Auto)2018-09-25 07:32:00* Test Item Value Reference Range Interpretation Comments Monocytes (%) (Auto) (test code = 5905-5) 12.6 4.4-11.3 H [facility] DallasEosinophils (%) (Auto)2018-09-25 07:32:00 * Test Item Value Reference Range Interpretation Comments Eosinophils (%) (Auto) (test code = 713-8) 2.7 0.0-6.0 [facility] DallasBasophils (%) (Auto)2018-09-25 07:32:00* Test Item Value Reference Range Interpretation Comments Basophils (%) (Auto) (test code = 706-2) 1.6 0.0-1.0 H [facility] DallasIM GRANULOCYTES %2018-09-25 07:32:00* Test Item Value Reference Range Interpretation Comments IM GRANULOCYTES % (test code = IM GRANULOCYTES %) 0.2 0.0- 1.0 [facility] DallasNeutrophils # (Auto)2018-09-25 07:32:00* Test Item Value Reference Range Interpretation Comments Neutrophils # (Auto) (test code = 751-8) 2.4 2.1-6.9 [facility] DallasLymphocytes # (Auto)2018-09-25 07:32:00* Test Item Value Reference Range Interpretation Comments Lymphocytes # (Auto) (test code = 50131-8) 1.2 1.0-3.2 [facility] DallasMonocytes # (Auto)2018-09-25 07:32:00* Test Item Value Reference Range Interpretation Comments Monocytes # (Auto) (test code = 742-7) 0.6 0.2-0.8 [facility] DallasEosinophils # (Auto)2018-09-25 07:32:00* Test Item Value Reference Range Interpretation Comments Eosinophils # (Auto) (test code = 711-2) 0.1 0.0-0.4 [facility] DallasBasophils # (Auto)2018-09-25 07:32:00* Test Item Value Reference Range Interpretation Comments Basophils # (Auto) (test code = 704-7) 0.1 0.0-0.1 [facility] DallasAbsolute Immature Granulocyte (auto 2018-09-25 07:32:00* Test Item Value Reference Range Interpretation Comments Absolute Immature Granulocyte (auto (curtis t code = Absolute Immature Granulocyte (auto) 0.01 0-0.1 [facility] DallasCreatine Kinase [id number] 23:02:00* Test Item Value Reference Range Interpretation Comments Creatine Kinase MB (test code = 33241-2) 0.50 0-5.0 [facility] DallasTroponin [id number] 23:02:00* Test Item Value Reference Range Interpretation Comments Troponin I (test code = OLH3182) 0.011 0-0.300 [facility] DallasCreatine Kinase [id number] 23:02:00* Test Item Value Reference Range Interpretation Comments Creatine Kinase MB (test code = 51505-0) 0.50 0-5.0 [facility] DallasTroponin [id number] 23:02:00* Test Item Value Reference Range Interpretation Comments Troponin I (test code = HQD2870) 0.011 0-0.300 [facility] DallasCHEST 2 VFUTZ6716-11-43 22:59:00 [place] [address] Patient Name: VIVIANA MALIK MR #: [id number] : 1935 Age/Sex: 83/F Req #: [id number] Adm Physician: Ordered by: ROSA LUX MD Report #: [id number] Location: ER Room/Bed: Procedure: D X/CHEST 2 VIEWS Exam Date: Exam Time: REPORT STATUS: Signed EXAMINATION: CHEST 2 VIEWS INDICATION: CHEST PAIN COMPARISON: None FINDI NGS: PA and lateral views TUBES and LINES: None. LUNGS: Diffuse hyp erinflation. There is no evidence of pneumonia or pulmonary edema. Round calc ification superimposed over the mediastinum on the lateral image may represent a calcified granuloma. This measures 8 mm. PLEURA: No pleural effusion or pneumothorax. HEART AND MEDIASTINUM: The heart is normal in size. The aor ta is tortuous with calcifications in the arch. BONES AND SOFT TISSUES: T he bones are diffusely demineralized. Healed left upper rib fractures. No acut e fractures. Soft tissues are unremarkable. UPPER ABDOMEN: No free air un mai the diaphragm. IMPRESSION: No acute thoracic abnormality. Mild hype rinflation suggestive of COPD. Potential calcified granuloma. Signed b y: Dr. Lola Cohen MD on 2018 11:01 PM Dictated By: LOLA COHEN MD 00 Tra nscribed By: NABIL on 09/24/182300 COPY TO: ROSA LUX MD Total Mbaiotptu1718-17-91 22:54:00* Test Item Value Reference Range Interpretation Comments Total Bilirubin (test code = 1975-2) 0.4 0.2-1.2 [facility] DallasAspartate Amino Transf (AST/SGOT) 2018 22:54:00* Test Item Value Reference Range Interpretation Comments Aspartate Amino Transf (AST/SGOT) (test code = Aspartate Amino Transf (AST/SGOT)) 21 5-34 [facility] DallasAlanine Aminotransferase (ALT/SGPT) 2018 22:54:00* Test Item Value Reference Range Interpretation Comments Alanine Aminotransferase (ALT/SGPT) (test code = 1742-6) 16 0-55 [facility] DallasTotal Xhewhff7579-59-73 22:54:00* Test Item Value Reference Range Interpretation Comments Total Protein (test code = 2885-2) 7.6 6.5-8.1 [facility] DallasAlbumin2019-06-01 22:54:00* Test Item Value Reference Range Interpretation Comments Albumin (test code = 1751-7) 3.6 3.5-5.0 [facility] DallasGlobulin2019-06-01 22:54:00* Test Item Value Reference Range Interpretation Comments Globulin (test code = 31218-3) 4.0 2.3-3.5 H [facility] DallasAlbumin/Globulin [id number] 22:54:00 * Test Item Value Reference Range Interpretation Comments Albumin/Globulin Ratio (test code = 1759-0) 0.9 0.8-2.0 [facility] DallasAlkaline Gfvoreaewnb2747-57-51 22:54:00* Test Item Value Reference Range Interpretation Comments Alkaline Phosphatase (test code = 6768-6) 57 40-150 [facility] DallasCreatine Axkhqt7391-17-19 22:54:00* Test Item Value Reference Range Interpretation Comments Creatine Kinase (test code = 2157-6) 17 29-168 L [facility] DallasTotal Zpcoomnlk3527-75-93 22:54:00* Test Item Value Reference Range Interpretation Comments Total Bilirubin (test code = 1975-2) 0.4 0.2-1.2 [facility] DallasAspartate Amino Transf (AST/SGOT) 2018 22:54:00* Test Item Value Reference Range Interpretation Comments Aspartate Amino Transf (AST/SGOT) (test code = Aspartate Amino Transf (AST/SGOT)) 21 5-34 [facility] DallasAlanine Aminotransferase (ALT/SGPT) 2018 22:54:00* Test Item Value Reference Range Interpretation Comments Alanine Aminotransferase (ALT/SGPT) (test code = 1742-6) 16 0-55 [facility] Gngcndi1763-22-96 22:54:00* Test Item Value Reference Range Interpretation Comments Total Protein (test code = 2885-2) 7.6 6.5-8.1 [facility] DallasAlbumin2019-06-01 22:54:00* Test Item Value Reference Range Interpretation Comments Albumin (test code = 1751-7) 3.6 3.5-5.0 [facility] DallasGlobulin2019-06-01 22:54:00* Test Item Value Reference Range Interpretation Comments Globulin (test code = 65808-1) 4.0 2.3-3.5 H [facility] DallasAlbumin/Globulin Djohz0821-51-07 22:54:00 * Test Item Value Reference Range Interpretation Comments Albumin/Globulin Ratio (test code = 1759-0) 0.9 0.8-2.0 [facility] DallasAlkaline Yleovlqxwgq8480-03-15 22:54:00* Test Item Value Reference Range Interpretation Comments Alkaline Phosphatase (test code = 6768-6) 57 40-150 [facility] DallasCreatine Ymquzc3697-89-88 22:54:00* Test Item Value Reference Range Interpretation Comments Creatine Kinase (test code = 2157-6) 17 29-168 L [facility] DallasProthrombin Yxqa5498-57-09 22:53:00* Test Item Value Reference Range Interpretation Comments Prothrombin Time (test code = 5902-2) 13.9 11.9-14.5 [facility] DallasProthromb Time International Ratio 2018 22:53:00* Test Item Value Reference Range Interpretation Comments Prothromb Time International Ratio (test code = 6301-6) 1.02 Oral Anticoagulant Therapy INR Values:1. Low Intensity Therapy 1.5 - 2.02 . Moderate Intensity Therapy 2.0 - 3.03. High Intensity Therapy(1) 2.5 - 3. 54. High Intensity Therapy(2) 3.0 - 4.05. Panic Value INR > 5.0 [facility] DallasActivated Partial Thromboplast Time 2018 22:53:00* Test Item Value Reference Range Interpretation Comments Activated Partial Thromboplast Time (test code = 37372-0) 27.9 23.8-35.5 [facility] DallasProthrombin Dtkw9797-00-55 22:53:00* Test Item Value Reference Range Interpretation Comments Prothrombin Time (test code = 5902-2) 13.9 11.9-14.5 [facility] DallasProthromb Time International Ratio 2018 22:53:00* Test Item Value Reference Range Interpretation Comments Prothromb Time International Ratio (test code = 6301-6) 1.02 Oral Anticoagulant Therapy INR Values:1. Low Intensity Therapy 1.5 - 2.02 . Moderate Intensity Therapy 2.0 - 3.03. High Intensity Therapy(1) 2.5 - 3. 54. High Intensity Therapy(2) 3.0 - 4.05. Panic Value INR > 5.0 [facility] DallasActivated Partial Thromboplast Time 2018 22:53:00* Test Item Value Reference Range Interpretation Comments Activated Partial Thromboplast Time (test code = 52753-7) 27.9 23.8-35.5 [facility] DallasUrine [id number] 22:50:00* Test Item Value Reference Range Interpretation Comments Urine WBC (test code = 5821-4) >50 0-5 H [facility] DallasUrine [id number] 22:50:00* Test Item Value Reference Range Interpretation Comments Urine RBC (test code = 15453-3) 11-20 0-5 H [facility] DallasUrine Pbpnghvq6819-34-20 22:50:00* Test Item Value Reference Range Interpretation Comments Urine Bacteria (test code = 24320-3) MANY NONE H [facility] DallasUrine Epithelial Nexdf5968-32-26 22:50:00 * Test Item Value Reference Range Interpretation Comments Urine Epithelial Cells (test code = 49555-3) FEW NONE [facility] DallasUrine [id number] 22:50:00* Test Item Value Reference Range Interpretation Comments Urine WBC (test code = 5821-4) >50 0-5 H [facility] DallasUrine [id number] 22:50:00* Test Item Value Reference Range Interpretation Comments Urine RBC (test code = 28976-1) 11-20 0-5 H [facility] DallasUrine Lpxdxxnq2187-62-87 22:50:00* Test Item Value Reference Range Interpretation Comments Urine Bacteria (test code = 49813-3) MANY NONE [facility] Epithelial [id number] 22:50:00 * Test Item Value Reference Range Interpretation Comments Urine Epithelial Cells (test code = 41540-4) FEW NONE [facility] [id number] 22:29:00* Test Item Value Reference Range Interpretation Comments Urine Color (test code = 5778-6) YELLOW YELLOW [facility] Dffkqmw1732-29-36 22:29:00* Test Item Value Reference Range Interpretation Comments Urine Clarity (test code = 63627-9) CLEAR CLEAR [facility] Specific [id number] 22:29:00 * Test Item Value Reference Range Interpretation Comments Urine Specific [place] (test code = 5811-5) <=1.005 1.010-1.02 5 [facility] [id number] 22:29:00* Test Item Value Reference Range Interpretation Comments Urine pH (test code = 12931-8) 6 5-7 [facility] Leukocyte [id number] 22:29:00* Test Item Value Reference Range Interpretation Comments Urine Leukocyte Esterase (test code = 78049-4) MODERATE NEGATIV E [facility] Zqicgtt9957-44-36 22:29:00* Test Item Value Reference Range Interpretation Comments Urine Nitrite (test code = 17630-8) NEGATIVE NEGATIVE [facility] Taczwsz9494-10-67 22:29:00* Test Item Value Reference Range Interpretation Comments Urine Protein (test code = 99647-8) NEGATIVE NEGATIVE [facility] Glucose (UA)2018 22:29:00* Test Item Value Reference Range Interpretation Comments Urine Glucose (UA) (test code = 17922-1) NEGATIVE NEGATIVE [facility] Mhtqzxr5850-85-90 22:29:00* Test Item Value Reference Range Interpretation Comments Urine Ketones (test code = 85636-9) NEGATIVE NEGATIVE [facility] Intywyxtjyxz0390-23-09 22:29:00* Test Item Value Reference Range Interpretation Comments Urine Urobilinogen (test code = 11332-1) 0.2 0.2-1 [facility] Onlniudft3168-75-64 22:29:00* Test Item Value Reference Range Interpretation Comments Urine Bilirubin (test code = 1977-8) NEGATIVE NEGATIVE [facility] Iyprg1534-24-06 22:29:00* Test Item Value Reference Range Interpretation Comments Urine Blood (test code = 08925-8) NEGATIVE NEGATIVE [facility] Egkyi0005-75-78 22:29:00* Test Item Value Reference Range Interpretation Comments Urine Color (test code = 5778-6) YELLOW YELLOW [facility] Zyuzgkw8914-83-05 22:29:00* Test Item Value Reference Range Interpretation Comments Urine Clarity (test code = 32847-7) CLEAR CLEAR [facility] Specific [id number] 22:29:00 * Test Item Value Reference Range Interpretation Comments Urine Specific [place] (test code = 5811-5) <=1.005 1.010-1.02 5 [facility] [id number] 22:29:00* Test Item Value Reference Range Interpretation Comments Urine pH (test code = 55461-0) 6 5-7 [facility] Leukocyte Rcionxht0707-63-68 22:29:00* Test Item Value Reference Range Interpretation Comments Urine Leukocyte Esterase (test code = 66895-1) MODERATE NEGATIV E [facility] Sxdeowj8926-37-13 22:29:00* Test Item Value Reference Range Interpretation Comments Urine Nitrite (test code = 98523-4) NEGATIVE NEGATIVE [facility] Twmumwu5939-66-35 22:29:00* Test Item Value Reference Range Interpretation Comments Urine Protein (test code = 76602-1) NEGATIVE NEGATIVE [facility] Glucose (UA)2018 22:29:00* Test Item Value Reference Range Interpretation Comments Urine Glucose (UA) (test code = 57814-4) NEGATIVE NEGATIVE [facility] [id number] 22:29:00* Test Item Value Reference Range Interpretation Comments Urine Ketones (test code = 99478-4) NEGATIVE NEGATIVE [facility] Fzigzwrszymx9353-69-63 22:29:00* Test Item Value Reference Range Interpretation Comments Urine Urobilinogen (test code = 44346-4) 0.2 0.2-1 [facility] Cwsodsfeg4858-73-72 22:29:00* Test Item Value Reference Range Interpretation Comments Urine Bilirubin (test code = 1977-8) NEGATIVE NEGATIVE [facility] Ukugs8060-36-79 22:29:00* Test Item Value Reference Range Interpretation Comments Urine Blood (test code = 37897-8) NEGATIVE NEGATIVE [facility] - Serum or Ouzmpi8156-71-97 10:51:00* Test Item Value Reference Range Interpretation Comments ALT (test code = ALT) 16 U/L 0-55 AST (test code = AST) 19 U/L 5-34 BUN (test code = BUN) 13.5 mg/dL 9.8-20.1 alk phos (test code = alk phos) 141 unit/L 40-150 glucose (test code = glucose) 365 mg/dL 70-99 H albumin (test code = albumin) 3.4 g/dL 3.5-5.0 L creatinine (test code = creatinine) 0.92 mg/dL 0.57-1.11 eGFR non- (test code = eGFR non-carlitos n burmese) 58 mL/min/1.73m2 >60 L total bilirubin (test code = total bilirubin) 0.5 mg/dL 0.2-1.2 eGFR - (test code = eGFR - ) >60 >60 sodium (test code = sodium) 136 mEq/L 136-145 potassium (test code = potassium) 5.2 mEq/L 3.5-5.1 H chloride (test code = chloride) 100 mmol/L 98-107 total protein (test code = total protein) 7.7 g/dL 6.4-8.3 calcium (test code = calcium) 10.1 mg/dL 8.4-10.2 CO2 (test code = CO2) 26.8 mmol/L 23.0-31.0 anion gap (test code = anion gap) 9 [facility] - Serum or Rpetrz3954-81-50 10:51:00* Test Item Value Reference Range Interpretation Comments HDL (test code = HDL) 47 mg/dL 40-60 triglyceride (test code = triglyceride) 242 mg/dL 0-149 H VLDL calc. (test code = VLDL calc.) 48 mg/dL cholesterol/HDL ratio (test code = cholesterol/HDL ratio) 5.2 mg/dL non-HDL cholesterol calc. (test code = non-HDL cholesterol c alc.) 196 mg/dL 0-160 H cholesterol (test code = cholesterol) 243 mg/dL 0-199 H LDL calc. (test code = LDL calc.) 148 mg/dL 0-130 H [facility] [Mass/volume] in Serum or Plasma 2017-02-11 10:51:00* Test Item Value Reference Range Interpretation Comments T4 free (test code = T4 free) 0.73 NG/dL 0.70-1.48 [facility]Thy[facility]in [Units/volume] in Serum or [id number] 10:51:00* Test Item Value Reference Range Interpretation Comments TSH (test code = TSH) 30.680 uIU/mL 0.350-4.940 H [facility] W Auto Differential panel - Wwqyq8722-17-13 16:25:00 * Test Item Value Reference Range Interpretation Comments WBC (test code = WBC) 5.89 x10*3/?L 3.98-10.04 RBC (test code = RBC) 5.15 10*12/L 3.93-5.22 hemoglobin (test code = hemoglobin) 15.70 g/dL 11.20-15.70 hematocrit (test code = hematocrit) 46.5 % 34.1-44.9 H MCV (test code = MCV) 90.3 fL 80.0-100.0 MCH (test code = MCH) 30.5 pg 25.6-32.2 MCHC (test code = MCHC) 33.8 g/dL 32.2-35.5 RDW-SD (test code = RDW-SD) 46.3 fL 36.4-46.3 platelet count (test code = platelet count) 494.0 k/uL 182.0-369. 0 H MPV (test code = MPV) 10.2 fL 7.5-11.5 neut% (test code = neut%) 55.5 % 34.0-71.1 lymph% (test code = lymph%) 32.8 % 19.3-51.7 mon% (test code = mon%) 6.6 % 4.7-12.5 eos% (test code = eos%) 2.2 % 0.7-5.8 baso% (test code = baso%) 2.9 % 0.1-1.2 H neut# (test code = neut#) 3.3 x10*3/?L 1.6-6.1 lymph# (test code = lymph#) 1.9 x10*3/?L 1.2-3.7 mon# (test code = mon#) 0.4 x10*3/?L 0.2-0.9 eos# (test code = eos#) 0.13 x10*3/?L 0.04-0.36 baso# (test code = baso#) 0.17 x10*3/?L 0.01-0.08 H [facility] CenterHemoglobin A1c/Hemoglobin.total in [id number] 16:16:00* Test Item Value Reference Range Interpretation Comments A1C w/EAG (test code = A1C w/EAG) 12.8 % 1.0-5.7 H average blood glucose (test code = average blood glucose) 321 mg/dL [facility]
[2020-01-22] MEDS ORDERED: IOPAMIDOL 370 MG/ML 200 ML INFUS..BTL INJ ONE (21:22)
[2020-01-22] MEDS ORDERED: SODIUM CHLORIDE 0.9% 50ML 50 ML ONE (21:22)
[2020-01-22 22:31] LABS: CLARITY,URINE TURBID (CLEAR); COLOR,URINE YELLOW (YELLOW)
[2020-01-22 22:32] LABS: BILIRUBIN,URINE NEGATIVE (NEGATIVE); KETONES,URINE NEGATIVE (NEGATIVE); LEUKOCYTE ESTERASE ,URINE MODERATE (NEGATIVE); NITRITE,URINE POSITIVE (NEGATIVE); PROTEIN,URINE DIPSTICK NEGATIVE (NEGATIVE); URINE UROBILINOGEN 1 mg/dL (0.2 - 1)
[2020-01-22 22:36] LABS: BACTERIA,URINE MANY /HPF; EPITHELIAL CELLS,URINE FEW /LPF; WBC,URINE (MAN) 21-50 /HPF (0-5)
--- NOTE | 2020-01-22 22:53 | Diagnostic Imaging Report ---
EXAM: CT Abdomen and Pelvis WITH contrast INDICATION: Right abdominal pain COMPARISON: Chest and abdominal CT. TECHNIQUE: Abdomen and pelvis were scanned utilizing a multidetector helical scanner from the lung base to the pubic symphysis after administration of IV contrast. Coronal and sagittal reformations were obtained. Routine protocol was performed. Scan was performed when during portal venous phase. IV CONTRAST: 100 mL of Isovue 370 ORAL CONTRAST: None COMPLICATIONS: None RADIATION DOSE: Total DLP: 389 mGy*cm Estimated effective dose: (DLP x 0.015 x size factor) mSv CTDIvol has been reviewed. It is below the limits set by the Radiation Protocol Committee (RPC). Dose modulation, iterative reconstruction, and/or weight based adjustment of the mA/kV was utilized to reduce the radiation dose to as low as reasonably achievable. FINDINGS: LINES and TUBES: None. LOWER THORAX: Bibasilar reticular and tree-in-bud nodular groundglass opacities. Moderate sliding gastric hiatal hernia. Small volume pericardial fluid. HEPATOBILIARY: The liver is diffuse hypodense compared to the spleen, consistent with diffuse hepatic diffuse hepatic steatosis. No focal hepatic lesions. No biliary ductal dilation. GALLBLADDER: There are cholecystectomy clips. SPLEEN: No splenomegaly. PANCREAS: No focal masses or ductal dilatation. ADRENALS: No adrenal nodules KIDNEYS/URETERS: Kidneys enhance symmetrically. No hydronephrosis. No cystic or solid mass lesions. No stones. GI TRACT: No abnormal distention, wall thickening, or evidence of bowel obstruction. Appendix is normal. PELVIC ORGANS/BLADDER: Hysterectomy. No adnexal masses. Moderate urinary bladder distention. LYMPH NODES: No lymphadenopathy. VESSELS: Arterial calcifications. Small calcified splenic artery aneurysms, none larger than 1 cm. PERITONEUM / RETROPERITONEUM: No free air or fluid. BONES: There are degenerative changes in the spine. Osseous demineralization. SOFT TISSUES: Unremarkable. IMPRESSION: Findings in the lower lungs are compatible with multifocal pneumonia, possibly aspiration, viral pneumonia is also consideration. Moderate sliding gastric hernia hernia. Moderate urinary bladder distention, correlate for urinary retention. Hepatic steatosis. Signed by: Guicho Benites DO on 01/22/2020 10:50 PM
[2020-01-22 23:38] VITALS: BP 157/77
== END 2020-01-22 23:43 | disposition home or self-care (01) ==
LOC: ER 20:47
DX: J18.9 Pneumonia, unspecified organism (principal); N39.0 Urinary tract infection, site not specified; R10.31 Right lower quadrant pain; I10 Essential (primary) hypertension; E11.9 Type 2 diabetes mellitus without complications; E78.5 Hyperlipidemia, unspecified; E03.9 Hypothyroidism, unspecified
CPT/HCPCS: 36415; 74177; 80053; 81001; 82150; 82550; 82553; 83690; 84484; 85025; 87040; 87086; 99284; J2543; J7030; Q9967

== ENCOUNTER 2020-11-02 19:29 | Inpatient (IN) | payer MEDICARE ==
[~2020-11-02] VITALS: Ht 152.4 cm; Wt 46.4 kg
[2020-11-02 20:05] LABS: BASOPHILS # (AUTO) 0.1 (0.0-0.1); BASOPHILS % 0.7 % (0.0-1.0); EOSINOPHILS # (AUTO) 0.1 (0.0-0.4); EOSINOPHILS % 0.7 % (0.0-6.0); HEMATOCRIT 38.2 % (34.2-44.1); HEMOGLOBIN 12.2 g/dL (12.0-16.0); LYMPHOCYTES # (AUTO) 1.5 (1.0-3.2); MEAN CORPUSCULAR HEMOGLOBIN 27.1 pg (28-32); MEAN CORPUSCULAR HGB CONC 31.9 g/dL (31-35); MEAN CORPUSCULAR VOLUME 84.7 fL (81-99); MONOCYTES # (AUTO) 1.4 (0.2-0.8); MONOCYTES % 7.6 % (4.4-11.3); NEUTROPHILS # (AUTO) 15.2 (2.1-6.9); NEUTROPHILS % 81.3 % (38.7-80.0); PLATELET COUNT 511 x10e3/uL (140-360); RED BLOOD COUNT 4.51 x10e6/uL (3.6-5.1)
[2020-11-02] MEDS ORDERED: CEFTRIAXONE 1 GM in SODIUM CHLORIDE 0.9% 50ML 50 ML IV ONE (20:30)
[2020-11-02 20:34] LABS: ALANINE AMINOTRANSFERASE 12 IU/L (0-55); ALBUMIN 2.8 g/dL (3.5-5.0); ALBUMIN/GLOBULIN RATIO 0.8 (0.8-2.0); ALKALINE PHOSPHATASE 119 IU/L (40-150); ANION GAP 17.3 mmol/L (8-16); BLOOD UREA NITROGEN 34 mg/dL (7-26); BUN/CREATININE RATIO 18 (6-25); CALCIUM 8.5 mg/dL (8.4-10.2); CARBON DIOXIDE 21 mmol/L (22-29); CHLORIDE 90 mmol/L (98-107); CREATINE KINASE 19 IU/L (29-168); CREATININE, SERUM 1.91 mg/dL (0.57-1.11); EST GLOMERULAR FILTRATION RATE 25 ML/MIN (60-); POTASSIUM 4.3 mmol/L (3.5-5.1); SODIUM 124 mmol/L (136-145)
[2020-11-02] MEDS: SODIUM CHLORIDE 0.9% 1000ML 1,000 ML IV SCH ×2 (20:39→21:03)
[2020-11-02 20:52] LABS: CLARITY,URINE CLOUDY (CLEAR); COLOR,URINE YELLOW (YELLOW); KETONES,URINE NEGATIVE (NEGATIVE); LEUKOCYTE ESTERASE ,URINE NEGATIVE (NEGATIVE); NITRITE,URINE NEGATIVE (NEGATIVE); PROTEIN,URINE DIPSTICK 2+ (NEGATIVE); URINE UROBILINOGEN 0.2 mg/dL (0.2 - 1)
[2020-11-02 20:55] LABS: BACTERIA,URINE MANY /HPF; EPITHELIAL CELLS,URINE FEW /LPF; RBC,URINE 0-5 /HPF (0-5); WBC,URINE (MAN) 0-5 /HPF (0-5)
[2020-11-02] MEDS ORDERED: INSULIN REGULAR, HUMAN 3ML VL 100 UNIT in SODIUM CHLORIDE 0.9% 100 ML IV SCH ×2 (21:00)
[2020-11-02] MEDS ORDERED: POTASSIUM CHLORIDE 20MEQ/100ML 200 ML IV PRN (21:00)
[2020-11-02] MEDS ORDERED: DEXTROSE 5%/0.45% SOD CHL 1,000 ML IV SCH (21:00)
[2020-11-02] MEDS ORDERED: MAGNESIUM SULF 1GRAM/DEXTROSE 100 ML IV PRN (21:00)
[2020-11-03] VITALS (25 sets, daily range): BP systolic 121–161; BP diastolic 52–79
[2020-11-03] MEDS ORDERED: AZITHROMYCIN 500MG/SOD CHL 0.9% 250ML BAG IV SCH (00:30)
[2020-11-03] MEDS ORDERED: ACETAMINOPHEN 325 MG TAB PO PRN (00:30)
[2020-11-03 01:20] LABS: ABG HCO3 23 mmol/L (22-26); ABG PCO2 38 mmHg (35-45); ABG PH 7.39 (7.35-7.45); ABG PO2 76 mmHg (80-105); ABG TCO2 24
[2020-11-03] MEDS: SODIUM CHLORIDE 0.9% 1000ML 1,000 ML IV SCH ×5 (01:36→19:26)
[2020-11-03 02:09] LABS: ANION GAP 11.4 mmol/L (8-16); CALCIUM 8.9 mg/dL (8.4-10.2); CREATININE, SERUM 1.33 mg/dL (0.57-1.11); POTASSIUM 3.4 mmol/L (3.5-5.1)
[2020-11-03 02:58] LABS: CREATINE KINASE MB 0.6 ng/mL (0-5.0)
[2020-11-03] MEDS ORDERED: HYDRALAZINE HCL 20 MG/ML VIAL IV PRN (03:30)
[2020-11-03] MEDS ORDERED: LACTULOSE SYRUP 20 GM/30 ML UDC PO PRN (03:45)
[2020-11-03] MEDS ORDERED: DEXTROSE 50% SYRINGE 50 ML IV PRN ×2 (04:00→19:00)
[2020-11-03] MEDS ORDERED: INSULIN REGULAR, HUMAN 3ML VL 100 UNIT in SODIUM CHLORIDE 0.45% 100 ML 100 ML IV SCH ×2 (04:00)
[2020-11-03] MEDS ORDERED: INSULIN REGULAR, HUMAN 100 UNIT/1 ML ONE (04:19)
[2020-11-03] MEDS ORDERED: POTASSIUM CHLORIDE 20MEQ/100ML 200 ML IV PRN (05:30)
[2020-11-03] MEDS ORDERED: POTASSIUM CHLORIDE 20MEQ/100ML 100 ML ONE (05:36)
[2020-11-03] MEDS: LEVOTHYROXINE SODIUM 100 MCG TAB PO SCH (05:39)
[2020-11-03 06:16] LABS: BASOPHILS # (AUTO) 0.1 (0.0-0.1); BASOPHILS % 0.7 % (0.0-1.0); EOSINOPHILS # (AUTO) 0.5 (0.0-0.4); EOSINOPHILS % 2.8 % (0.0-6.0); HEMATOCRIT 40.7 % (34.2-44.1); HEMOGLOBIN 13.1 g/dL (12.0-16.0); LYMPHOCYTES # (AUTO) 2.3 (1.0-3.2); LYMPHOCYTES % 14.5 % (18.0-39.1); MEAN CORPUSCULAR HEMOGLOBIN 27.4 pg (28-32); MEAN CORPUSCULAR HGB CONC 32.2 g/dL (31-35); MEAN CORPUSCULAR VOLUME 85.1 fL (81-99); MONOCYTES # (AUTO) 1.4 (0.2-0.8); MONOCYTES % 8.7 % (4.4-11.3); NEUTROPHILS # (AUTO) 11.5 (2.1-6.9); PLATELET COUNT 471 x10e3/uL (140-360); RED BLOOD COUNT 4.78 x10e6/uL (3.6-5.1); RED CELL DISTRIBUTION WIDTH 14.9 % (11.7-14.4)
[2020-11-03 06:33] LABS: ANION GAP 13.5 mmol/L (8-16); CALCIUM 8.6 mg/dL (8.4-10.2); CREATININE, SERUM 0.94 mg/dL (0.57-1.11); MAGNESIUM 1.9 MG/DL (1.3-2.1); POTASSIUM 3.5 mmol/L (3.5-5.1)
[2020-11-03] MEDS: DOCUSATE SODIUM 100 MG CAP PO SCH ×2 (08:14→16:08)
[2020-11-03] MEDS: ASPIRIN 81 MG ENTERIC COATED PO SCH (08:14)
[2020-11-03] MEDS: SIMVASTATIN 40 MG TAB PO SCH (08:14)
[2020-11-03 11:20] LABS: CREATINE KINASE 19 IU/L (29-168)
[2020-11-03 12:14] LABS: THYROID STIMULATING HORMONE 2.769 uIU/mL (0.350-4.940)
[2020-11-03 17:11] LABS: CREATINE KINASE 19 IU/L (29-168)
[2020-11-03] MEDS: CEFTRIAXONE 1 GM in SODIUM CHLORIDE 0.9% 50ML 50 ML IV SCH (19:52)
[2020-11-03] MEDS: INSULIN GLARGINE 100 UNITS/ML VIAL SQ SCH (19:58)
[2020-11-03] MEDS: INSULIN LISPRO 100 UNIT/1 ML 3ML VIAL SQ SCH (20:00)
[2020-11-03] MEDS ORDERED: POTASSIUM CHLORIDE 20 MEQ TAB CR PO STA (21:50)
[2020-11-04] VITALS (13 sets, daily range): BP systolic 117–178; BP diastolic 57–83
[2020-11-04 04:58] LABS: BASOPHILS # (AUTO) 0.1 (0.0-0.1); BASOPHILS % 0.7 % (0.0-1.0); EOSINOPHILS # (AUTO) 0.2 (0.0-0.4); EOSINOPHILS % 1.9 % (0.0-6.0); HEMATOCRIT 38.3 % (34.2-44.1); HEMOGLOBIN 12.3 g/dL (12.0-16.0); LYMPHOCYTES # (AUTO) 1.4 (1.0-3.2); LYMPHOCYTES % 11.5 % (18.0-39.1); MEAN CORPUSCULAR HEMOGLOBIN 27.2 pg (28-32); MEAN CORPUSCULAR HGB CONC 32.1 g/dL (31-35); MEAN CORPUSCULAR VOLUME 84.5 fL (81-99); MONOCYTES # (AUTO) 0.9 (0.2-0.8); MONOCYTES % 7.7 % (4.4-11.3); NEUTROPHILS # (AUTO) 9.4 (2.1-6.9); NEUTROPHILS % 77.1 % (38.7-80.0); PLATELET COUNT 501 x10e3/uL (140-360); RED BLOOD COUNT 4.53 x10e6/uL (3.6-5.1)
[2020-11-04 05:18] LABS: ALBUMIN/GLOBULIN RATIO 0.6 (0.8-2.0); ANION GAP 10.8 mmol/L (8-16); CALCIUM 8.1 mg/dL (8.4-10.2); CREATININE, SERUM 0.69 mg/dL (0.57-1.11); POTASSIUM 3.8 mmol/L (3.5-5.1)
[2020-11-04] MEDS: SODIUM CHLORIDE 0.9% 1000ML 1,000 ML IV SCH ×2 (08:11→20:31)
[2020-11-04] MEDS: SIMVASTATIN 40 MG TAB PO SCH (08:22)
[2020-11-04] MEDS: DOCUSATE SODIUM 100 MG CAP PO SCH ×2 (08:22→16:33)
[2020-11-04] MEDS: LEVOTHYROXINE SODIUM 100 MCG TAB PO SCH (08:22)
[2020-11-04] MEDS: ASPIRIN 81 MG ENTERIC COATED PO SCH (08:22)
[2020-11-04] MEDS: INSULIN LISPRO 100 UNIT/1 ML 3ML VIAL SQ SCH ×4 (08:34→21:06)
[2020-11-04] MEDS: CEFTRIAXONE 1 GM in SODIUM CHLORIDE 0.9% 50ML 50 ML IV SCH (20:31)
[2020-11-04] MEDS: INSULIN GLARGINE 100 UNITS/ML VIAL SQ SCH (21:06)
[2020-11-05] VITALS (7 sets, daily range): BP systolic 106–186; BP diastolic 62–95
[2020-11-05] MEDS: LEVOTHYROXINE SODIUM 100 MCG TAB PO SCH (07:30)
[2020-11-05] MEDS: SIMVASTATIN 40 MG TAB PO SCH (08:57)
[2020-11-05] MEDS: DOCUSATE SODIUM 100 MG CAP PO SCH ×2 (08:57→16:56)
[2020-11-05] MEDS: ASPIRIN 81 MG ENTERIC COATED PO SCH (08:57)
[2020-11-05] MEDS: INSULIN LISPRO 100 UNIT/1 ML 3ML VIAL SQ SCH ×4 (10:26→22:02)
[2020-11-05 11:51] LABS: ANION GAP 9.5 mmol/L (8-16); CALCIUM 8.2 mg/dL (8.4-10.2); CREATININE, SERUM 0.77 mg/dL (0.57-1.11); POTASSIUM 3.5 mmol/L (3.5-5.1)
[2020-11-05] MEDS ORDERED: INSULIN GLARGINE 100 UNITS/ML VIAL SQ SCH (21:00)
[2020-11-05] MEDS: CEFTRIAXONE 1 GM in SODIUM CHLORIDE 0.9% 50ML 50 ML IV SCH (21:14)
[2020-11-06 00:01] VITALS: BP 169/70
[2020-11-06 04:00] VITALS: BP 168/58
[2020-11-06 04:48] LABS: BASOPHILS # (AUTO) 0.1 (0.0-0.1); BASOPHILS % 1.2 % (0.0-1.0); EOSINOPHILS # (AUTO) 0.3 (0.0-0.4); EOSINOPHILS % 3.6 % (0.0-6.0); HEMATOCRIT 40.2 % (34.2-44.1); LYMPHOCYTES # (AUTO) 1.7 (1.0-3.2); LYMPHOCYTES % 17.6 % (18.0-39.1); MEAN CORPUSCULAR HEMOGLOBIN 27.4 pg (28-32); MEAN CORPUSCULAR HGB CONC 32.3 g/dL (31-35); MEAN CORPUSCULAR VOLUME 84.6 fL (81-99); MONOCYTES # (AUTO) 0.9 (0.2-0.8); MONOCYTES % 8.9 % (4.4-11.3); NEUTROPHILS # (AUTO) 6.5 (2.1-6.9); NEUTROPHILS % 67.9 % (38.7-80.0); PLATELET COUNT 639 x10e3/uL (140-360); RED BLOOD COUNT 4.75 x10e6/uL (3.6-5.1); RED CELL DISTRIBUTION WIDTH 15.4 % (11.7-14.4)
[2020-11-06 05:09] LABS: ALBUMIN/GLOBULIN RATIO 0.5 (0.8-2.0); ANION GAP 13.6 mmol/L (8-16); CALCIUM 8.4 mg/dL (8.4-10.2); CREATININE, SERUM 0.73 mg/dL (0.57-1.11); POTASSIUM 3.6 mmol/L (3.5-5.1)
[2020-11-06] MEDS: INSULIN LISPRO 100 UNIT/1 ML 3ML VIAL SQ SCH ×3 (07:30→16:30)
[2020-11-06] MEDS: LEVOTHYROXINE SODIUM 100 MCG TAB PO SCH (07:30)
[2020-11-06 08:09] VITALS: BP 167/79
[2020-11-06] MEDS: SIMVASTATIN 40 MG TAB PO SCH (09:00)
[2020-11-06] MEDS: DOCUSATE SODIUM 100 MG CAP PO SCH ×2 (09:00→17:40)
[2020-11-06] MEDS: ASPIRIN 81 MG ENTERIC COATED PO SCH (09:00)
[2020-11-06 12:05] VITALS: BP 159/84
[2020-11-06 14:37] VITALS: BP 167/79
[2020-11-06 16:32] VITALS: BP 156/73
[2020-11-06] MEDS ORDERED: AMARYL2 MG PO (17:05)
[2020-11-06] MEDS ORDERED: TRADJENTA5 MG PO (17:09)
[2020-11-06] MEDS ORDERED: GLIMEPIRIDE 2 MG TAB PO ONE (18:00)
== END 2020-11-06 20:13 | disposition home health service (06) | DRG 637 ==
LOC: ER 20:02 → ERHOLD 11-03 00:40 → ICU 11-03 01:48 → MED/SURG3 11-04 14:10
PROVIDERS: ADMIT Internal Medicine; ATTEND Internal Medicine
DX: E11.01 Type 2 diabetes mellitus with hyperosmolarity with coma (principal); G92 Toxic encephalopathy; G93.41 Metabolic encephalopathy; N17.9 Acute kidney failure, unspecified; R62.7 Adult failure to thrive; E03.9 Hypothyroidism, unspecified; J32.9 Chronic sinusitis, unspecified; Z68.20 Body mass index [BMI] 20.0-20.9, adult; F03.90 Unspecified dementia, unspecified severity, without behavioral disturbance, psychotic disturbance, mood disturbance, and anxiety; I11.0 Hypertensive heart disease with heart failure; I50.9 Heart failure, unspecified; I44.7 Left bundle-branch block, unspecified; Z20.822 Contact with and (suspected) exposure to COVID-19
CPT/HCPCS: 36415; 36600; 70450; 71045; 80048; 80053; 81001; 82140; 82550; 82553; 82805; 82948; 83036; 83605; 83690; 83735; 83880; 84443; 84484; 85025; 87040; 87086; 87186; 93005; 96372; 99285; J0360; J0456; J0696; J1815; J1817; J3480; J7030; J7050; U0002

== ENCOUNTER 2021-05-14 19:04 | Emergency (ER) | payer MEDICARE ==
[~2021-05-14] VITALS: Ht 152.4 cm; Wt 46.3 kg
[~2021-05-14 19:04] MED LIST changes: +AMARYL2 MG PO; +TRADJENTA5 MG PO
[2021-05-14] MEDS ORDERED: TRAMADOL HCL 50 MG TAB PO ONE (19:30)
[2021-05-14] MEDS ORDERED: ULTRAM 50MG50 MG PO (21:44)
[2021-05-14 21:45] VITALS: BP 109/52
== END 2021-05-14 21:50 | disposition home or self-care (01) ==
LOC: ER 19:23
DX: M25.512 Pain in left shoulder (principal); S42.292A Other displaced fracture of upper end of left humerus, initial encounter for closed fracture; X50.1XXA Overexertion from prolonged static or awkward postures, initial encounter; Y93.84 Activity, sleeping; Y92.092 Bedroom in other non-institutional residence as the place of occurrence of the external cause; I10 Essential (primary) hypertension; E11.9 Type 2 diabetes mellitus without complications; I50.9 Heart failure, unspecified; E78.5 Hyperlipidemia, unspecified; E03.9 Hypothyroidism, unspecified; F03.90 Unspecified dementia, unspecified severity, without behavioral disturbance, psychotic disturbance, mood disturbance, and anxiety
CPT/HCPCS: 99283

== ENCOUNTER 2022-06-30 18:23 | Emergency (ER) | payer MEDICARE ==
[~2022-06-30] VITALS: Ht 152.4 cm; Wt 55.3 kg
[~2022-06-30 18:23] MED LIST changes: +ULTRAM 50MG50 MG PO
[2022-06-30] MEDS ORDERED: ONDANSETRON HCL INJ 2MG/ML 2ML 2 MG/ML VIAL IV STA (18:47)
[2022-06-30] MEDS ORDERED: SODIUM CHLORIDE FLUSH 10 ML SYR IV PRN (18:48)
[2022-06-30] MEDS ORDERED: Morphine 4mg INJECTION 4 MG/ML INJ IV ONE (19:00)
[2022-06-30 19:13] LABS: BASOPHILS # (AUTO) 0.1 (0.0-0.1); BASOPHILS % 1.9 % (0.0-1.0); EOSINOPHILS # (AUTO) 0.5 (0.0-0.4); EOSINOPHILS % 6.9 % (0.0-6.0); HEMATOCRIT 39.5 % (34.2-44.1); LYMPHOCYTES # (AUTO) 2.1 (1.0-3.2); LYMPHOCYTES % 28.4 % (18.0-39.1); MEAN CORPUSCULAR HGB CONC 30.4 g/dL (31-35); MEAN CORPUSCULAR VOLUME 85.7 fL (81-99); MONOCYTES # (AUTO) 0.5 (0.2-0.8); MONOCYTES % 7.4 % (4.4-11.3); NEUTROPHILS % 54.6 % (38.7-80.0); PLATELET COUNT 552 x10e3/uL (140-360); RED BLOOD COUNT 4.61 x10e6/uL (3.6-5.1); RED CELL DISTRIBUTION WIDTH 14.2 % (11.7-14.4)
[2022-06-30 19:17] LABS: CLARITY,URINE HAZY (CLEAR); COLOR,URINE YELLOW (YELLOW); KETONES,URINE NEGATIVE (NEGATIVE); LEUKOCYTE ESTERASE ,URINE NEGATIVE (NEGATIVE); NITRITE,URINE NEGATIVE (NEGATIVE); PROTEIN,URINE DIPSTICK 2+ (NEGATIVE); URINE UROBILINOGEN 0.2 mg/dL (0.2 - 1)
[2022-06-30 19:21] LABS: INR 0.98; PROTHROMBIN TIME 13.2 seconds (11.9-14.5)
[2022-06-30 19:29] LABS: BACTERIA,URINE MANY /HPF
[2022-06-30 19:32] LABS: ALBUMIN 3.2 g/dL (3.5-5.0); ALBUMIN/GLOBULIN RATIO 0.6 (0.8-2.0); ANION GAP 15.9 mmol/L (8-16); CALCIUM 9.6 mg/dL (8.4-10.2); CREATININE, SERUM 1.24 mg/dL (0.57-1.11); POTASSIUM 3.9 mmol/L (3.5-5.1)
[2022-06-30] MEDS ORDERED: IOPAMIDOL 370 MG/ML 100 ML INFUS..BTL INJ ONE (19:51)
[2022-06-30] MEDS ORDERED: CEFDINIR300 MG PO (22:48)
== END 2022-06-30 23:12 | disposition home or self-care (01) ==
LOC: ER 18:27
DX: M54.50 Low back pain, unspecified (principal); N30.90 Cystitis, unspecified without hematuria; U07.1 COVID-19; R10.11 Right upper quadrant pain; E11.65 Type 2 diabetes mellitus with hyperglycemia; F03.90 Unspecified dementia, unspecified severity, without behavioral disturbance, psychotic disturbance, mood disturbance, and anxiety; I10 Essential (primary) hypertension; E78.5 Hyperlipidemia, unspecified; E03.9 Hypothyroidism, unspecified; I50.9 Heart failure, unspecified; R94.31 Abnormal electrocardiogram [ECG] [EKG]
CPT/HCPCS: 36415; 71045; 74177; 80053; 81001; 83690; 84484; 85025; 85610; 85730; 93005; 99285; J0696; J2270; J2405; Q9967; U0002